=== PATIENT | female | born 1940 | race Caucasian/White ===

== ENCOUNTER → 2016-05-22 | Outpatient (CLI) | payer MEDICARE ==
[~2016-05-22] MED LIST: ALEN70TA47 PO; ASPI-999 PO; CEPH500C PO; CHOL10003 PO; HYDR1TAB86 PO; HYDR25TA4 PO; L.AC1CAP6 PO; LEVO25TA5 PO; LOSA100T7 PO; METO100T2 PO; METO50TA7 PO; NAPR-243 PO; NAPR500T3 PO; NYST1000 PO
--- OUTSIDE RECORDS SUMMARY | 2016-05-22 09:58 | XMS REPORT | Continuity of Care Document ---
Author Author [facility] Organization [facility] Address Unknown Phone Unavailable Care Team Providers Care Spooling Machine Operator Name Role Phone JOSE RAUL VALDERRAMA MD PCP Insurance Providers Payer Name Policy Number Subscriber Name Relationship [employer]ps Medicare [id number] Jeimy Yan 18 Self / Same As Patient [employer] Mc[employer] Supp [id number] Jeimy Yan 18 Self / Same As Patient Advance Directives Directive Response Recorded Date/Time Advance Directives Yes 01/12/16 12:18am Organ Donor N cancer pt 01/12/16 12:18am Resuscitation Status Full Code 01/12/16 12:18am Chief Complaint and Reason for Visit Chief Complaint PNEUMONIA,HYPONATREMIA,DEHYDRATION Reason for Visit Dehydration Hyponatremia Pneumonia Problems Active Problems Medical Problem Onset Date Status Dehydration Unknown Acute Hyponatremia Unknown Acute Pneumonia Unknown Acute Medications Current Home Medications Medication Dose Units Route Directions Days/Qty Instructions Start Date Naproxen 500 Mg 500 Mg Oral Twice A Day as needed for Pain 04/29/11 Hydrochlorothiazide 25 Mg 25 Mg Oral Daily 01/11/16 Aspirin 81 Mg 81 Mg Oral Daily 01/11/16 Metoprolol Tartrate 100 Mg 100 Mg Oral Twice A Day 01/11/16 Levothyroxine Sodium 25 Mcg 25 Mcg Oral Daily 01/11/16 Alendronate Sodium 70 Mg 70 Mg Oral Every Thursday01/14/16 Cholecalciferol (Vitamin D3) 1,000 Unit 1,000 Unit Oral Daily L.acidoph & Paracasei,B.lactis 1 Each 1 Cap Oral Twice A Day Nystatin 100,000 Unit/1 Ml 5 Ml Oral Give Every 6 Hr On Schedule 100 5mL every 6 hours x 5 days 01/17/16 Cephalexin 500 Mg 500 Mg Oral Three Times A Day 3 Days take one pill three times daily x 3 more days 01/17/16 Past Home Medications Medication Directions Ordered Status Metoprolol Succinate 50 Mg Tab.sr.24h, 1 Each Oral Daily 04/29/11 Discontinued Losartan Potassium 100 Mg Tablet, 100 Mg Oral Daily 04/29/11 Discontinued Hydrocodone Bit/Acetaminophen 1 Each Tablet, 1 Each Oral As Needed 04/29/11 Discontinued Cephalexin 500 Mg Capsule, 500 Mg Oral Three Times A Day 01/11/16 Discontinued Naproxen 500 Mg Tablet, 500 Mg Oral Twice A Day as needed for Pain 01/14/16 Discontinued Social History Social History Problem Response Recorded Date/Time Alcohol Use Denies Use 01/12/2016 12:21am Recreational Drug Use No 01/12/2016 12:21am Recent Foreign Travel No 01/12/2016 12:29am Recent Infectious Disease Exposure No 01/12/2016 12:29am Smoking Status Never a Smoker 01/12/2016 12:25am Recent Hopitalizations No 01/12/2016 12:21am Query Response Start Date Stop Date Smoking Status Never a Smoker Hospital Discharge Instructions Patient Instructions Physician Instructions Patient Instructions/FollowUp: follow up with [facility] in 1 week [place] DISCHARGE ORDERS Height (Feet): 5 Height (Inches): 5.00 Weight (Pounds): 211 Weight (Ounces): 0.2 Reason Pt Homebound weakness, pneumonia I Have Seen Pt [id number]: Yes Date of Face to Face: Jan 17, 2016 Discharged To: Home Diagnosis/Conditions HH Order: eval and treat check blood pressure and heart rate *I certify that based on my findings, the following services are medically necessary Home Health Services: Services: Nursing Services, Process Camera Operator-Evaluate & Treat, Physical Therapy-Evaluate & Treat My clinical findings support the need for the above services; see Diagnosis. Dicharge Diet: Regular Diet New, Converted, or Re-newed RX: Transmited to Pharmacy I certify that this patient is under my care and that I, a nurse practitioner or a physician; a clinical education assistant working with me, had a face to face encounter that - meets the physician face to face encounter requirements with this patient as dated. Care Plan Patient Instructions:: follow up with [facility] in 1 week Plan of Care Discharge Date 01/17/16 10:23am Disposition 06 HOME HEALTH SERVICE Instructions/Education Provided Bacterial Pneumonia (DC) Prescriptions See Medication Section Referrals [facility] (Unspecified) - 1 Week Reason(s) for Referral: Pneumonia Care Plan and Goals See Discharge Instructions Section Functional Status Query Response Date Recorded Patient Orientation Person Place Time Situation January 16, 2016 10:46am Patient Orientation Person Place Time Situation Normal For Age January 17, 2016 10:54am Comprehension Ability Understands Concepts January 17, 2016 8:00am Allergies, Adverse Reactions, Alerts No known allergies. Immunizations Name Given Type FLU TRIvalent 5 years - Adult 01/14/16 Administered Vital Signs Acute Vital Signs Vital Response Date/Time Temperature (Fahrenheit) 95.7 degrees F (97.6 - 99.5) 01/17/2016 10:23am Temperature (Calculated Celsius) 35.25793 degrees C (36.4 - 37.5) 01/17/2016 8:00am Temperature Source Tympanic 01/17/2016 10:23am Pulse Rate (adult) 107 bpm (60 - 90) 01/17/2016 10:23am Respiratory Rate 20 bpm (12 - 24) 01/17/2016 10:23am O2 Sat by Pulse Oximetry 94 % (88 - 100) 01/17/2016 10:23am Blood Pressure 115/80 mm Hg 01/17/2016 10:23am Blood Pressure Mean 92 mm Hg 01/17/2016 8:00am Pain Numeric Pain Scale 0-No Pain 01/17/2016 10:23am Height (Feet) 5 feet 01/12/2016 12:30am Height (Inches) 5.00 inches 01/12/2016 12:30am Height (Calculated Centimeters) 165.831261 cm 01/12/2016 12:30am Weight (Pounds) 211 pounds 01/17/2016 6:37am Weight (Ounces) 0.2 oz 01/17/2016 6:37am Weight (Calculated Grams) 90793.661 gm 01/17/2016 6:37am Weight (Calculated Kilograms) 95.352044 kilograms 01/17/2016 6:37am Calculated BMI 34.5 01/12/2016 12:30am Capillary Refill Capillary Refill Less Than 3 Seconds 01/17/2016 8:00am Results Laboratory Results Test Name Result Units Flags Reference Collection Date/Time Result Date/ Time Comments White Blood Count 11.3 10^3/uL H 4.3-11.0 01/17/2016 4:13am 01/17/2016 5: 10am Red Blood Count 3.35 10^6/uL L 4.35-5.85 01/17/2016 4:1301/17/2016 5: 10am Hemoglobin 9.9 G/DL L 11.5-16.0 01/17/2016 4:1301/17/2016 5:10am Hematocrit 31 % L 35-52 01/17/2016 4:1301/17/2016 5:10am Mean Corpuscular Volume 91 FL 80-99 01/17/2016 4:1301/17/2016 5: 10am Mean Corpuscular Hemoglobin 30 PG 25-34 01/17/2016 4:1301/17/2016 5: 10am Mean Corpuscular Hemoglobin Concent 32 G/DL 32-36 01/17/2016 4:13 5:10am Red Cell Distribution Width 15.4 % H 10.0-14.5 01/17/2016 4:132015 5:10am Platelet Count 220 10^3/uL 130-400 01/17/2016 4:1301/17/2016 5:10am Mean Platelet Volume 10.5 FL H 7.4-10.4 01/17/2016 4:1301/17/2016 5: 10am Neutrophils (%) (Auto) 82 % H 42-75 01/17/2016 4:1301/17/2016 5:10am Lymphocytes (%) (Auto) 8 % L 12-44 01/17/2016 4:1301/17/2016 5:10am Monocytes (%) (Auto) 9 % 0-12 01/17/2016 4:13am 01/17/2016 5:10am Eosinophils (%) (Auto) 1 % 0-10 01/17/2016 4:1301/17/2016 5:10am Basophils (%) (Auto) 0 % 0-10 01/17/2016 4:1301/17/2016 5:10am Neutrophils # (Auto) 9.3 X 10^3 H 1.8-7.8 01/17/2016 4:1301/17/2016 5: 10am Lymphocytes # (Auto) 0.9 X 10^3 L 1.0-4.0 01/17/2016 4:1301/17/2016 5: 10am Monocytes # (Auto) 1.0 X 10^3 0.0-1.0 01/17/2016 4:1301/17/2016 5: 10am Eosinophils # (Auto) 0.1 10^3/uL 0.0-0.3 01/17/2016 4:1301/17/2016 5 :10am Basophils # (Auto) 0.0 10^3/uL 0.0-0.1 01/17/2016 4:1301/17/2016 5: 10am Neutrophils % (Manual) 88 % 01/11/2016 7:58pm 01/11/2016 8:55pm Band Neutrophils 4 % 01/11/2016 7:58pm 01/11/2016 8:55pm Lymphocytes % (Manual) 3 % 01/11/2016 7:58pm 01/11/2016 8:55pm Monocytes % (Manual) 5 % 01/11/2016 7:58pm 01/11/2016 8:55pm Eosinophils % (Manual) 0 % 01/11/2016 7:58pm 01/11/2016 8:55pm Basophils % (Manual) 0 % 01/11/2016 7:58pm 01/11/2016 8:55pm Blood Morphology Comment NORMAL 01/11/2016 7:58pm 01/11/2016 8: 55pm Toxic Granulation 1+ 01/11/2016 7:58pm 01/11/2016 8:55pm Urine Color YELLOW 01/16/2016 11:25am 01/16/2016 6:24pm Urine Clarity CLEAR 01/16/2016 11:25am 01/16/2016 6:24pm Urine pH 7 5-9 01/16/2016 11:25am 01/16/2016 6:24pm Urine Specific Supply 1.005 * 1.016-1.022 01/16/2016 11:2015 6:24pm Urine Protein 1+ * NEGATIVE 01/16/2016 11:01/16/2016 6:24pm Urine Glucose (UA) NEGATIVE NEGATIVE 01/16/2016 11:01/16/2016 6: 24pm Urine RBC (Auto) 1+ * NEGATIVE 01/16/2016 11:01/16/2016 6:24pm Urine Ketones NEGATIVE NEGATIVE 01/16/2016 11:01/16/2016 6:24pm Urine Nitrite NEGATIVE NEGATIVE 01/16/2016 11:01/16/2016 6:24pm Urine Bilirubin NEGATIVE NEGATIVE 01/16/2016 11:01/16/2016 6: 24pm Urine Urobilinogen NORMAL MG/DL NORMAL 01/16/2016 11:01/16/2016 6: 24pm Urine Leukocyte Esterase NEGATIVE NEGATIVE 01/16/2016 11:2015 6:24pm Urine RBC 0-2 /HPF 01/16/2016 11:01/16/2016 6:24pm Urine WBC 0-2 /HPF 01/16/2016 11:01/16/2016 6:24pm Urine Bacteria NONE /HPF 01/16/2016 11:01/16/2016 6:24pm Urine Squamous Epithelial Cells 0-2 /HPF 01/16/2016 11:252015 6:24pm Urine Crystals NONE /LPF 01/16/2016 11:2501/16/2016 6:24pm Urine Casts NONE /LPF 01/16/2016 11:2501/16/2016 6:24pm Urine Coarse Granular Casts 10- /LPF * 01/11/2016 11:00pm 01/11/2016 11:24pm Urine Mucus NEGATIVE /LPF 01/16/2016 11:2501/16/2016 6:24pm Urine Culture Indicated NO 01/16/2016 11:2501/16/2016 6:24pm Sodium Level 135 MMOL/L 135-145 01/17/2016 4:13am 01/17/2016 5:30am Potassium Level 5.2 MMOL/L H 3.6-5.0 01/17/2016 4:13am 01/17/2016 5:30am SPECIMEN IS NOT HEMOLYZED Chloride Level 97 MMOL/L L 98-107 01/17/2016 4:13am 01/17/2016 5:30am Carbon Dioxide Level 34 MMOL/L H 21-32 01/17/2016 4:13am 01/17/2016 5: 30am Anion Gap 4 MMOL/L L 5-14 01/17/2016 4:13am 01/17/2016 5:30am Blood Urea Nitrogen 29 MG/DL H 7-18 01/17/2016 4:13am 01/17/2016 5:30am Creatinine 0.79 MG/DL 0.60-1.30 01/17/2016 4:13am 01/17/2016 5:30am BUN/Creatinine Ratio 37 01/17/2016 4:13am 01/17/2016 5:30am Estimat Glomerular Filtration Rate > 60 01/17/2016 4:132015 5:30am GFR INTERPRETIVE DATA UNITS FOR ESTIMATED GFR (eGFR): mL/min/1.73 M2 REFERENCE RANGE FOR ESTIMATED GFR (eGFR) eGFR NORMAL eGFR >60 MODERATELY DECREASED eGFR 30-59 SEVERLY DECREASED eGFR 15-29 KIDNEY FAILURE <15 (OR DIALYSIS) Glucose Level 120 MG/DL H 70-105 01/17/2016 4:13am 01/17/2016 5:30am Calcium Level 8.9 MG/DL 8.5-10.1 01/17/2016 4:1301/17/2016 5:30am Phosphorus Level 3.3 MG/DL 2.3-4.7 01/17/2016 4:1301/17/2016 5:30am Magnesium Level 1.7 MG/DL L 1.8-2.4 01/17/2016 4:13am 01/17/2016 5:30am Total Bilirubin 0.3 MG/DL 0.1-1.0 01/17/2016 4:13am 01/17/2016 5:30am Alkaline Phosphatase 86 U/L 40-136 01/17/2016 4:13am 01/17/2016 5:30am Aspartate Amino Transf (AST/SGOT) 12 U/L 5-34 01/17/2016 4:13am 2015 5:30am Alanine Aminotransferase (ALT/SGPT) 14 U/L 0-55 01/17/2016 4:13am 01/16 5:30am Total Protein 5.2 G/DL L 6.4-8.2 01/17/2016 4:13am 01/17/2016 5:30am Albumin 2.6 G/DL L 3.2-4.5 01/17/2016 4:13am 01/17/2016 5:30am Lactic Acid Level 2.6 MMOL/L CH 0.5-2.0 01/11/2016 7:58pm 01/11/2016 9: 17pm RESULTS CALLED TO [facility] ([place]) AT 2116. RESULTS READ BACK: YES [g LABRB]. Lactic Acid Level 1.2 MMOL/L 0.5-2.0 01/11/2016 11:10pm 01/11/2016 11: 41pm Microbiology Results Procedure Source Result Collection Date/Time Result Date/Time Blood Culture Peripheral, Left Wrist No growth 01/11/2016 7:58pm 2015 6:54pm Blood Culture Peripheral, Rt Ac No growth 01/11/2016 9:18pm 01/12/2016 6: 54pm Urine Culture Urine, Clean Catch NO GROWTH 01/11/2016 11:00pm 01/12/2016 5: 35pm Procedures No known history of procedures. Encounters Encounter Location Arrival/Admit Date Discharge/Depart Date Attending Provider Discharged Inpatient [facility] 01/11/16 9:34pm 10:23am JOSE RAUL VALDERRAMA MD Recent Diagnosis Dehydration Hyponatremia Pneumonia
--- NOTE | 2016-05-23 10:42 | Diagnostic Imaging Report ---
Bilateral screening mammogram. The current study was also evaluated with a Computer Aided Detection (CAD) system. INDICATION: Screening. No current complaints stated on the questionnaire. COMPARISON: 03/06/2016. FINDINGS: The breasts are composed of scattered fibroglandular densities. There are occasional benign-appearing calcifications. Some nodularity is seen in the parenchyma bilaterally similar to prior exams. Also benign-appearing calcifications are noted. Allowing for technique and positional differences, no suspicious change is seen. IMPRESSION: No significant change. ACR BI-RADS Category 2: Benign findings. Result letter will be mailed to the patient. Note: At least 10% of breast cancer is not imaged by mammography. Dictated by: Dictated on workstation # [id number]
== END ==
LOC: RAD 09:53
PROVIDERS: ATTEND Nurse Practitioner Family
DX: Z12.31 Encounter for screening mammogram for malignant neoplasm of breast (principal)
CPT/HCPCS: 77067

== ENCOUNTER → 2017-06-29 | Outpatient (CLI) | payer MEDICARE ==
[~2017-06-29] MED LIST changes: +METO100T12 PO; -METO100T2 PO; +NAPR-915 PO; -NAPR500T3 PO
--- NOTE | 2017-06-29 11:31 | Diagnostic Imaging Report ---
INDICATION: Routine screening. COMPARISON: 05/22/2016 and 05/07/2015. TECHNIQUE: Screening digital mammography was performed bilaterally with a Computer Aided Detection (CAD) system. FINDINGS: Scattered fibroglandular densities are identified bilaterally. Benign calcifications and parenchymal nodularity appear stable. No spiculated mass or malignant appearing microcalcifications are seen. The axillae are unremarkable. IMPRESSION: No mammographic features suspicious for malignancy are identified. ACR BI-RADS Category 2: Benign findings. Result letter will be mailed to the patient. Note: At least 10% of breast cancer is not imaged by mammography. Dictated by: Dictated on workstation # [id number]
== END ==
LOC: RAD 09:42
PROVIDERS: ATTEND Nurse Practitioner Family
DX: Z12.31 Encounter for screening mammogram for malignant neoplasm of breast (principal)
CPT/HCPCS: 77067

== ENCOUNTER → 2017-10-07 | Outpatient (CLI) | payer MEDICARE ==
--- NOTE | 2017-10-07 14:02 | Diagnostic Imaging Report ---
INDICATION: Fall and back pain. TIME OF EXAM: 11:56 a.m. Curvature is normal. There is minimal anterolisthesis of L3 on L4. There is questionable minimal superior endplate compression at the L3 level, age indeterminate. Remaining lumbar vertebrae show normal stature. There is degenerative disc disease at L4-L5 and L5-S1 levels with disc space narrowing and vacuum disc. Calcifications in the right upper quadrant noted consistent with gallstones. IMPRESSION: 1. Cholelithiasis. 2. Questionable superior endplate fracture of L3. MRI lumbar spine would be useful for further evaluation to evaluate acuity. Dictated by: Dictated on workstation # [id number]
== END ==
LOC: RAD 11:18
PROVIDERS: ATTEND Nurse Practitioner Family
DX: K80.20 Calculus of gallbladder without cholecystitis without obstruction (principal); M54.5 Low back pain; W19.XXXA Unspecified fall, initial encounter
CPT/HCPCS: 72100

== ENCOUNTER 2018-11-21 13:00 | Emergency (ER) | payer MEDICARE ==
[~2018-11-21] VITALS: Ht 162.6 cm; Wt 81.6 kg
[~2018-11-21 13:00] MED LIST changes: -ALEN70TA47 PO; +ALEN70TA5 PO
--- NOTE | 2018-11-21 13:46 | ED Neurological Problem ---
General Chief Complaint: General Problems/Pain Stated Complaint: DIZZINESS/NAUSEA/LOW BP Nursing Triage Note: PT TO RM 9 BY WHEELCHAIR WITH COMLAINT OF DIZZINESS, NAUSEA AND LOW BP. STATES THIS STARTED AT 4AM. STATES HER BP WAS "49". DOES NOT REMEMBER THE WHOLE READING. 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 Nursing Sepsis Screen: No Definite Risk Source: patient, family (daughter) Exam Limitations: no limitations History of Present Illness Date Seen by Provider: Nov 21, 2018 Time Seen by Provider: 13:24 Initial Comments The patient presents to ER by private conveyance with chief complaint that for o'clock this morning when she woke up in the bathroom she felt dizzy like the room was spinning around her. She got up went to the bathroom and had a normal bowel movement urination and the dizziness subsided on the toilet. She's had a few episodes of this throughout her lifetime but never had it worked up before. She says she took her own blood pressure and heart rate and she thought it was elevated and her blood pressure was low but she does not remember the numbers. She said years ago she had low blood pressure and it made her drink a lot of water and rechecked normal. She does not take diuretics, blood thinners have a history of stroke heart attack or peripheral arterial disease. She does not smoke cigarettes. She does not have a history of vertigo or take meclizine. She says several of her friends been diagnosed with vertigo and they described similar symptoms. 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 Allergies and Home Medications Allergies Coded Allergies: No Known Drug Allergies (Unverified , 04/30/11) Home Medications Alendronate Sodium 70 Mg Tablet, 70 MG PO Tu, (Reported) Aspirin 81 Mg Tab.chew, 81 MG PO DAILY, (Reported) Cephalexin 500 Mg Capsule, 500 MG PO TID take one pill three times daily x 3 more days Prescribed by: JOSE RAUL VALDERRAMA on 01/17/16 0909 Cholecalciferol (Vitamin D3) 1,000 Unit Tablet, 1,000 UNIT PO DAILY, (Reported) Hydrochlorothiazide 25 Mg Tablet, 25 MG PO DAILY, (Reported) LAudreyacidoph & Bj Landalactis 1 Each Capsule, 1 CAP PO BID, (Reported) Levothyroxine Sodium 25 Mcg Tablet, 25 MCG PO DAILY, (Reported) Metoprolol Tartrate 100 Mg Tablet, 100 MG PO BID, (Reported) Naproxen 500 Mg Tablet, 500 MG PO BID PRN for PAIN, (Reported) Nystatin 100,000 Unit/1 Ml Oral.susp, 5 ML PO Q6HR 5mL every 6 hours x 5 days Prescribed by: JOSE RAUL VALDERRAMA on 01/17/16 0908 Patient Home Medication List Home Medication List Reviewed: Yes Review of Systems Review of Systems Constitutional: No chills, No fever, No malaise Eyes: Denies Blindness, Denies Blurred Vision, Denies Drainage Ears, Nose, Mouth, Throat: denies ear pain, denies ear discharge Respiratory: No cough, No short of breath Cardiovascular: No chest pain, No edema, No Hx of Intervention, No palpitations, No syncope, No vascular heart diseas Gastrointestinal: No abdominal pain, No constipation, No diarrhea Genitourinary: No decreased output, No discharge, No dysuria Musculoskeletal: No back pain, No joint pain Past Spjxnao-Gdndbh-Wcloqo Hx Patient Social History Alcohol Use: Denies Use Recreational Drug Use: No Smoking Status: Never a Smoker 2nd Hand Smoke Exposure: No Recent Foreign Travel: No Contact w/Someone Who Travel: No Recent Infectious Disease Expo: No Recent Hopitalizations: No Physical Abuse: No Sexual Abuse: No Mistreated: No Fear: No Immunizations Up To Date Date of Pneumonia Vaccine: Dec 21, 2014 Seasonal Allergies Seasonal Allergies: Yes Past Medical History Surgeries: Yes (left total knee, bladder tie up, neck cancer lump excision) Hysterectomy, Orthopedic Respiratory: No Cardiac: Yes Hypotension Neurological: No Musculoskeletal: Yes Arthritis Endocrine: Yes Hypothyroidsim Loss of Vision: Denies Hearing Impairment: Denies Cancer: Yes Oral Psychosocial: No Integumentary: No Blood Disorders: No Family Medical History Heart Disease, Diabetes, Hypertension, Other Conditions/Hx Physical Exam Vital Signs Vital Signs - First Documented 11/21/18 13:05 Pulse 93 Resp 16 B/P (MAP) 124/92 (103) Pulse Ox 98 O2 Delivery Room Air Capillary Refill : Less Than 3 Seconds Height, Weight, BMI Height: 5'4.00" Weight: 180lbs. 0.2oz. [id number]; 34.5 BMI Method:Stated General Appearance: WD/WN, no apparent distress HEENT: PERRL/EOMI, normal ENT inspection, TMs normal, pharynx normal Neck: non-tender, limited range of motion, other (contracture secondary to radiation therapy. No acute pain or tenderness to palpation.) Respiratory: chest non-tender, no respiratory distress, no accessory muscle use Cardiovascular: normal peripheral pulses, regular rate, rhythm, no murmur Peripheral Pulses: 2+ Dorsalis Pedis (R), 2+ Left Dors-Pedis (L), 2+ Radial Pulses (R), 2+ Radial Pulses (L) Extremities: normal range of motion, normal capillary refill Neurologic/Psychiatric: stockkeeper II-XII nml as tested, no motor/sensory deficits, alert, normal mood/affect, oriented x 3, other (unable to do head impulse testing. Negative for nystagmus or test of skew.) Crainal Nerves: normal hearing, normal speech, PERRL Coordination/Gait: normal finger to nose, normal gait Motor/Sensory: no motor deficit, no sensory deficit Skin: normal color, warm/dry Progress/Results/Core Measures Results/Orders Lab Results Laboratory Tests Test 11/21/18 13:14 11/21/18 14:13 Range/Units White Blood Count 5.8 4.3-11.0 10^3/uL Red Blood Count 3.48 L 4.35-5.85 10^6/uL Hemoglobin 10.4 L 11.5-16.0 G/DL Hematocrit 33 L 35-52 % Mean Corpuscular Volume 93 80-99 FL Mean Corpuscular Hemoglobin 30 25-34 PG Mean Corpuscular Hemoglobin Concent 32 32-36 G/DL Red Cell Distribution Width 14.0 10.0-14.5 % Platelet Count 244 130-400 10^3/uL Mean Platelet Volume 11.5 H 7.4-10.4 FL Neutrophils (%) (Auto) 79 H 42-75 % Lymphocytes (%) (Auto) 15 12-44 % Monocytes (%) (Auto) 6 0-12 % Eosinophils (%) (Auto) 0 0-10 % Basophils (%) (Auto) 0 0-10 % Neutrophils # (Auto) 4.6 1.8-7.8 X 10^3 Lymphocytes # (Auto) 0.9 L 1.0-4.0 X 10^3 Monocytes # (Auto) 0.3 0.0-1.0 X 10^3 Eosinophils # (Auto) 0.0 0.0-0.3 10^3/uL Basophils # (Auto) 0.0 0.0-0.1 10^3/uL Sodium Level 137 135-145 MMOL/L Potassium Level 4.6 3.6-5.0 MMOL/L Chloride Level 103 98-107 MMOL/L Carbon Dioxide Level 24 21-32 MMOL/L Anion Gap 10 5-14 MMOL/L Blood Urea Nitrogen 73 H 7-18 MG/DL Creatinine 0.83 0.60-1.30 MG/DL Estimat Glomerular Filtration Rate > 60 BUN/Creatinine Ratio 88 Glucose Level 116 H 70-105 MG/DL Calcium Level 8.7 8.5-10.1 MG/DL Corrected Calcium 8.9 8.5-10.1 MG/DL Total Bilirubin 0.8 0.1-1.0 MG/DL Aspartate Amino Transf (AST/SGOT) 15 5-34 U/L Alanine Aminotransferase (ALT/SGPT) 11 0-55 U/L Alkaline Phosphatase 52 40-136 U/L C-Reactive Protein High Sensitivity 0.08 0.00-0.50 MG/DL Total Protein 6.4 6.4-8.2 GM/DL Albumin 3.7 3.2-4.5 GM/DL Urine Color YELLOW Urine Clarity CLEAR Urine pH 6 5-9 Urine Specific [place] 1.015 L 1.016-1.022 Urine Protein NEGATIVE NEGATIVE Urine Glucose (UA) NEGATIVE NEGATIVE Urine Ketones NEGATIVE NEGATIVE Urine Nitrite NEGATIVE NEGATIVE Urine Bilirubin NEGATIVE NEGATIVE Urine Urobilinogen NORMAL NORMAL MG/DL Urine Leukocyte Esterase NEGATIVE NEGATIVE Urine RBC (Auto) 1+ H NEGATIVE Urine RBC 0-2 /HPF Urine WBC NONE /HPF Urine Squamous Epithelial Cells 2-5 /HPF Urine Crystals NONE /LPF Urine Bacteria NEGATIVE /HPF Urine Casts NONE /LPF Urine Mucus NEGATIVE /LPF Urine Culture Indicated NO My Orders Orders - GENEVIEVE HOPKINS Orthostatic Vital Signs (Adult (11/21/18 13:42) Cbc With Automated Diff (11/21/18 13:42) Comprehensive Metabolic Panel (11/21/18 13:42) Hs C Reactive Protein (11/21/18 13:42) Ekg Tracing (11/21/18 13:42) Continuous Ekg Monitoring (11/21/18 13:42) Ua Culture If Indicated (11/21/18 13:42) Ed Iv/Invasive Line Start (11/21/18 13:52) Ns Iv 500 Ml (Sodium Chloride 0.9%) (11/21/18 13:52) Ed Iv/Invasive Line Start (11/21/18 15:40) Ns Iv 500 Ml (Sodium Chloride 0.9%) (11/21/18 15:40) Medications Given in ED Current Medications Medications Dose Ordered Sig/Hodan Route Start Time Stop Time Status Last Admin Dose Admin Sodium Chloride 500 ml @ 0 mls/hr Q0M ONCE IV 11/21/18 13:52 11/21/18 13:53 DC 11/21/18 13:59 500 MLS/HR Vital Signs/I&O 11/21/18 11/21/18 13:05 13:50 Pulse 93 86 91 82 Resp 16 B/P (MAP) 124/92 (103) 113/67 (82) 98/62 (74) 99/63 (75) Pulse Ox 98 O2 Delivery Room Air Blood Pressure Mean: 103 Progress Progress Note : Time: 14:42 Progress Note Negative MPI [address] Lizama with EF of 61%. Negative for findings of central vertigo. She has not required anything for nausea. Attempted to do Swan-Hallpike maneuvers but because of the limitations of the range of motion of her neck secondary to previous radiation therapy we were not able to perform adequate maneuvers nor elicit her vertigo. We will obtain labs, EKG, orthostatics. Orthostatics were not quite positive that she had 14 mmHg drop systolic so we'll give her half a liter fluids and watch her. She has not been hypotensive nor tachycardic since she's been here. She's already known to Dr. Miller may be reasonable to have her follow-up with him to discuss management of vertigo. We can provide her with some meclizine. We will attempt to teach Fawn's maneuvers however she may need tilt table testing. Initial ECG Impression Date: Nov 21, 2018 Initial ECG Impression Time: 14:02 Initial ECG Rate: 83 Initial ECG Rhythm: Normal Sinus Initial ECG Intervals: Normal Initial ECG Impression: Normal Initial ECG Comparisson: Unchanged Comment Normal sinus rhythm without acute ST elevation or depression. Departure Impression Primary Impression: Vertigo Additional Impression: Orthostatic dizziness Disposition: 01 HOME, SELF-CARE Condition: Improved Departure-Patient Inst. Decision time for Depature: 15:43 Referrals: JOSE RAUL VALDERRAMA MD (PCP/Family) Primary Care Physician Patient Instructions: Vertigo (a Type of Dizziness) (DC) Add. Discharge Instructions: Plan to follow up in the next couple weeks with your primary care doctor discussed management of your symptoms. Meclizine 1 tablet every 6 hours as needed for dizziness. All discharge instructions reviewed with patient and/or family. Voiced understanding. Scripts Meclizine HCl (Meclizine HCl) 25 Mg Tablet 25 MG PO Q6H PRN for DIZZINESS, #20 TAB 0 Refills Prov: GENEVIEVE HOPKINS 11/21/18 GENEVIEVE HOPKINS Nov 21, 2018 13:46
[2018-11-21 13:50] VITALS: BP_SYST 113; BP_SYST 98; BP_SYST 99; BP_DIAS 62; BP_DIAS 63; BP_DIAS 67
[2018-11-21] MEDS ORDERED: NS IV 500 ML 500 ML IV ONE ×2 (13:52→15:40)
[2018-11-21 13:53] LABS: BASOPHILS % (AUTO) 0 % (0-10); EOSINOPHILS % (AUTO) 0 % (0-10); HEMATOCRIT 33 % (35-52); HEMOGLOBIN 10.4 G/DL (11.5-16.0); LYMPHOCYTES # (AUTO) 0.9 X 10^3 (1.0-4.0); LYMPHOCYTES % (AUTO) 15 % (12-44); MEAN CORPUSCULAR HEMOGLOBIN 30 PG (25-34); MEAN CORPUSCULAR HGB CONC 32 G/DL (32-36); MEAN CORPUSCULAR VOLUME 93 FL (80-99); MEAN PLATELET VOLUME 11.5 FL (7.4-10.4); MONOCYTES # (AUTO) 0.3 X 10^3 (0.0-1.0); MONOCYTES % (AUTO) 6 % (0-12); NEUTROPHILS # (AUTO) 4.6 X 10^3 (1.8-7.8); NEUTROPHILS % (AUTO) 79 % (42-75); PLATELET COUNT 244 10^3/uL (130-400); WHITE BLOOD COUNT 5.8 10^3/uL (4.3-11.0)
[2018-11-21 14:28] LABS: BILIRUBIN,URINE NEGATIVE (NEGATIVE); CLARITY,URINE CLEAR; COLOR,URINE YELLOW; GLUCOSE, URINE (UA) NEGATIVE (NEGATIVE); KETONES,URINE NEGATIVE (NEGATIVE); LEUKOCYTE ESTERASE ,URINE NEGATIVE (NEGATIVE); NITRITE,URINE NEGATIVE (NEGATIVE); PH,URINE 6 (5-9); PROTEIN,URINE NEGATIVE (NEGATIVE); UROBILINOGEN,URINE NORMAL (NORMAL)
[2018-11-21 14:34] LABS: BACTERIA,URINE NEGATIVE /HPF; RBC,URINE 0-2 /HPF
[2018-11-21 15:18] LABS: ALANINE AMINOTRANSFERASE 11 U/L (0-55); ALBUMIN 3.7 GM/DL (3.2-4.5); ALKALINE PHOSPHATASE 52 U/L (40-136); BILIRUBIN,TOTAL 0.8 MG/DL (0.1-1.0); BUN/CREATININE RATIO 88; CALCIUM 8.7 MG/DL (8.5-10.1); CARBON DIOXIDE 24 MMOL/L (21-32); CHLORIDE 103 MMOL/L (98-107); CREATININE SERUM 0.83 MG/DL (0.60-1.30); GFR ESTIMATED > 60; GLUCOSE 116 MG/DL (70-105); POTASSIUM 4.6 MMOL/L (3.6-5.0); SODIUM 137 MMOL/L (135-145); TOTAL PROTEIN 6.4 GM/DL (6.4-8.2)
[2018-11-21] MEDS ORDERED: MECL-106 PO (15:45)
[2018-11-21 16:38] VITALS: BP 158/91
== END 2018-11-21 16:38 | disposition home or self-care (01) ==
LOC: EDUNIT# 13:00 → ER 13:02
DX: R42 Dizziness and giddiness (principal); I25.2 Old myocardial infarction; E03.9 Hypothyroidism, unspecified; Z86.73 Personal history of transient ischemic attack (TIA), and cerebral infarction without residual deficits; Z79.82 Long term (current) use of aspirin; Z90.710 Acquired absence of both cervix and uterus; Z85.819 Personal history of malignant neoplasm of unspecified site of lip, oral cavity, and pharynx; Z82.49 Family history of ischemic heart disease and other diseases of the circulatory system
CPT/HCPCS: 36415; 80053; 81000; 85025; 86141

== ENCOUNTER → 2019-03-01 | Outpatient (CLI) | payer MEDICARE ==
[~2019-03-01] MED LIST changes: +MECL-106 PO
--- NOTE | 2019-03-01 16:04 | Diagnostic Imaging Report ---
INDICATION: Postmenopausal screening for osteoporosis. COMPARISON: None FINDINGS: AP Spine L1-L4: [BMD (g/cm2): 1.3132] [T-Score: -0.6] [Z-Score: 0.9] [BMD Previous: na] [BMD % Change: na] LT Hip Neck: [BMD (g/cm2): 0.781] [T-Score: -1.8] [Z-Score: 0.0] LT Hip Total: [BMD (g/cm2):0.773] [T-Score:-1.9] [Z-Score: -0.1] [BMD Previous: na] [BMD % Change: na] RT Hip Neck: [BMD (g/cm2):0.758] [T-Score:-2.0] [Z-Score:-0.1] RT Hip Total: [BMD (g/cm2):0.768] [T-score:-1.9] [Z-Score:-0.2] [BMD Previous:na] [BMD % Change:na] *Indicates significant change from prior examination based on 95% confidence level. World Health Organization criteria for BMD interpretation classify patients as Normal (T-score at or above -1.0), Osteopenic (T-score between -1.0 and -2.5) or Osteoporotic (T-score at or below -2.5). LIMITATIONS AND MODIFICATION: None. FRACTURE RISK (FRAX SCORE): The ten year probability of (%): Major Osteoporotic Fracture: [22.6] Hip Fracture: [6.1] IMPRESSION: 1. Osteopenia (Low bone mass). 2. Baseline examination. 3. See below National Osteoporosis Foundation guidelines on when to potentially initiate pharmacologic therapy. Based on the National Osteoporosis Foundation Guidelines, pharmacologic treatment should be initiated in any of the following, unless clinical conditions suggest otherwise: * Any patient with prior fragility fracture of the hip or vertebrae. A spine fracture indicates 5X risk for subsequent spine fracture and 2X risk for subsequent hip fracture. * Osteoporosis (T-score <-2.5). * Postmenopausal women and men age 50 and older with low bone mass/osteopenia (T-score between -1.0 and -2.5) by DXA and 10-year major osteoporotic fracture greater than 20% or a 10-year probability of hip fracture greater than 3%. These fracture risks are supplied above in the FRAX score, if applicable. * Clinician judgement and/or patient preferences may indicate treatment for people with 10-year fracture probabilities above or below these levels. Dictated by: Dictated on workstation # [id number]
== END ==
LOC: RAD 10:59
PROVIDERS: ATTEND Family Medicine
DX: Z13.820 Encounter for screening for osteoporosis (principal); M81.0 Age-related osteoporosis without current pathological fracture; M85.80 Other specified disorders of bone density and structure, unspecified site; Z78.0 Asymptomatic menopausal state
CPT/HCPCS: 77080

== ENCOUNTER 2019-09-16 13:16 | Outpatient (RCR) | payer MEDICARE ==
[2019-09-09 13:05] VITALS: BP 158/90
[2019-09-09] MEDS: FERRIC CARBOXYMALTOSE INJ 750 MG in NS (IVPB) 250 ML IV SCH (13:48)
[2019-09-16 13:15] VITALS: BP 156/86
[~2019-09-16 13:16] MED LIST changes: -MECL-106 PO; +MECL-149 PO
[2019-09-16] MEDS: FERRIC CARBOXYMALTOSE INJ 750 MG in NS (IVPB) 250 ML IV SCH (13:40)
== END 2019-09-16 14:07 | disposition still patient (30) ==
LOC: SDC 13:16
PROVIDERS: ATTEND Nurse Practitioner Family
DX: D50.9 Iron deficiency anemia, unspecified (principal)
CPT/HCPCS: 96365

== ENCOUNTER → 2020-05-18 | Outpatient (CLI) | payer MEDICARE ==
[~2020-05-18] MED LIST changes: -ALEN70TA5 PO; +ALEN70TA80 PO
== END ==
LOC: CARD 13:00
PROVIDERS: ATTEND Internal Medicine Cardiovascular Disease
DX: I11.9 Hypertensive heart disease without heart failure (principal); I08.0 Rheumatic disorders of both mitral and aortic valves
CPT/HCPCS: 93306

== ENCOUNTER 2020-10-03 13:35 | Outpatient (RCR) | payer MEDICARE | END 2020-10-04 11:22 | disposition home or self-care (01) | PROVIDERS: ATTEND Nurse Practitioner Family | DX: M62.81 Muscle weakness (generalized) (principal); M40.209 Unspecified kyphosis, site unspecified; I10 Essential (primary) hypertension; R26.89 Other abnormalities of gait and mobility; R20.0 Anesthesia of skin; R29.6 Repeated falls ==

== ENCOUNTER 2022-06-16 13:34 | Emergency (ER) | payer MEDICARE ==
[~2022-06-16] VITALS: Ht 165.1 cm; Wt 73.4 kg
--- NOTE | 2022-06-16 13:51 | ED Fall/Injury ---
General Chief Complaint: Trauma-Non Activation Stated Complaint: FALL Source: patient, EMS Exam Limitations: no limitations History of Present Illness Date Seen by Provider: Jun 16, 2022 Time Seen by Provider: 13:38 Initial Comments 81-year-old female arrives via EMS after a fall at home. She states she went to the fridge and left her walker to get a dish out of the fridge. She was turning around the back of her walker got her feet caught on each other. This caused her to fall onto her right buttocks. She has pain in her right mid low back. No hip pain. Pain is mostly on the right lateral lumbar region but she does have some midline tenderness as well. No lower extremity weakness numbness or tingling. She has been able to ambulate but states it hurts her to do so. No loss of bowel bladder control or saddle anesthesia. No upper extremity injury. He did not hit her head and lose consciousness. She is not on any blood thinning medication. She denies any neck pain. All other systems reviewed and negative except documented per HPI. Voice recognition software was used to help create this chart Allergies and Home Medications Allergies Coded Allergies: No Known Drug Allergies (Unverified , 06/16/22) Patient Home Medication List Home Medication List Reviewed: Yes Alendronate Sodium (Alendronate Sodium) 70 Mg Tablet, 70 MG PO , (Reported) Entered as Reported by: NEFTALY CAMARENA on 01/14/161100 Aspirin (Aspirin) 81 Mg Tab.chew, 81 MG PO DAILY, (Reported) Entered as Reported by: JOHANN WRIGHT on 01/11/162023 Cephalexin (Cephalexin) 500 Mg Capsule, 500 MG PO TID Prescribed by: JOSE RAUL VALDERRAMA on 01/17/16 0909 Cholecalciferol (Vitamin D3) (Vitamin D3) 1,000 Unit Tablet, 1,000 UNIT PO DAILY, (Reported) Entered as Reported by: NEFTALY CAMARENA on 01/14/16 110 Hydrochlorothiazide (Hydrochlorothiazide) 25 Mg Tablet, 25 MG PO DAILY, (Repo rted) Entered as Reported by: JOHANN WRIGHT on 01/11/162023 L.acidoph & Paracasei,B.lactis (Probiotic) 1 Each Capsule, 1 CAP PO BID, (Reported) Entered as Reported by: NEFTALY CAMARENA on 01/14/16 1101 Levothyroxine Sodium (Levothyroxine Sodium) 25 Mcg Tablet, 25 MCG PO DAILY, (Reported) Entered as Reported by: JOHANN WRIGHT on 01/11/162023 Meclizine HCl (Meclizine HCl) 25 Mg Tablet, 25 MG PO Q6H PRN for DIZZINESS Prescribed by: GENEVIEVE HOPKINS on 11/21/18 1545 Metoprolol Tartrate (Metoprolol Tartrate) 100 Mg Tablet, 100 MG PO BID, (Reported) Entered as Reported by: JOHANN WRIGHT on 01/11/162023 Naproxen (Naprosyn) 500 Mg Tablet, 500 MG PO BID PRN for PAIN, (Reported) Entered as Reported by: JOSS HUI on 04/29/11 1203 Nystatin (Nystatin) 100,000 Unit/1 Ml Oral.susp, 5 ML PO Q6HR Prescribed by: JOSE RAUL VALDERRAMA on 01/17/16 0908 Review of Systems Review of Systems Constitutional: see HPI Past Wndwszl-Reoyvq-Ksovfn Hx Patient Social History Tobacco Use?: No Use of E-Cig and/or Vaping dev: No Substance use?: No Alcohol Use?: No Immunizations Up To Date Influenza Vaccine Up-to-Date: Yes; Up-to-Date Seasonal Allergies Seasonal Allergies: Yes Past Medical History Surgery/Hospitalization HX: OSTIOPEROSIS, HTN, IBS Surgeries: Yes (left total knee, bladder tie up, neck cancer lump excision) Hysterectomy, Orthopedic Respiratory: No Cardiac: Yes Hypotension Neurological: No Musculoskeletal: Yes Arthritis Endocrine: Yes Hypothyroidsim Loss of Vision: Denies Hearing Impairment: Denies Cancer: Yes Oral Psychosocial: No Integumentary: No Blood Disorders: No Family Medical History Reviewed Nursing Family Hx Heart Disease, Diabetes, Hypertension, Other Conditions/Hx Physical Exam Vital Signs Vital Signs - First Documented 06/16/22 13:34 Temp 35.3 Pulse 93 Resp 20 B/P (MAP) 176/106 (129) O2 Delivery Room Air Capillary Refill : Height, Weight, BMI Height: 5'4.00" Weight: 180lbs. 0.2oz. [id number]; 34.5 BMI Method:Stated General Appearance: WD/WN, no apparent distress HEENT: normal ENT inspection, pharynx normal Neck: non-tender, supple Cardiovascular: regular rate, rhythm, no murmur Respiratory: chest non-tender, lungs clear, normal breath sounds, no respiratory distress, no accessory muscle use Gastrointestinal: normal bowel sounds, non tender, soft, no organomegaly Back: other (Tenderness palpation right lateral lumbar region, mild tenderness in the midline near L4. No step-offs or deformity. No bruising.) Extremities: normal range of motion, non-tender, normal inspection, no pedal edema, no calf tenderness, normal capillary refill, other (No hip pain throughout internal and external rotation, flexion and extension.) Neurologic/Psychiatric: alert, normal mood/affect, oriented x 3 Skin: normal color, warm/dry Progress/Results/Core Measures Results/Orders My Orders Orders - JESSA GONZALEZ DO Ct Lumbar Spine Wo (06/16/22 13:47) Hydrocodone/Apap 5/325 Tablet (Lortab 5 (06/16/22 14:30) Medications Given in ED Current Medications Medications Dose Ordered Sig/Hodan Route Start Time Stop Time Status Last Admin Dose Admin Acetaminophen/ Hydrocodone Bitart 1 ea ONCE ONCE PO 06/16/22 14:30 06/16/22 14:31 DC 06/16/22 14:32 1 EA Vital Signs/I&O 06/16/22 13:34 Temp 35.3 Pulse 93 Resp 20 B/P (MAP) 176/106 (129) O2 Delivery Room Air Departure Communication (Admissions) Patient is hemodynamically stable. 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 Radiologist thinks it may be an acute mild compression fracture of the superior endplate of L1 however it is indeterminate. Give patient pain medication and she has been up, ambulatory. If this were to be a compression fracture it is less than 20% body height and would not be operative management so we will focus on pain control for now. Is unclear if this is actually a fracture or just severe arthritis however recommend the patient return to care should her symptoms worsen at all if she develops weakness numbness or tingling in the lower extremities, loss of bowel or bladder control. She will follow-up with her primary doctor should her pain persist beyond the next couple weeks for possible MRI. She states understanding. Is that she is comfortable for discharge home with pain medication and close follow-up. Impression Primary Impression: Low back pain Qualified Codes: M54.50 - Low back pain, unspecified Disposition: 01 HOME, SELF-CARE Condition: Stable Departure-Patient Inst. Referrals: JOSE RAUL VALDERRAMA MD (PCP) Primary Care Physician Add. Discharge Instructions: Your CT scan has a mild anomaly at the L1 vertebral body. This may be a fracture but is hard to tell as there is significant arthritis in this area as well. If this was a fracture, it would be mild and would not likely require operative management given that your pain is controlled. Should you have pain past the next couple weeks I recommend you follow-up with your primary doctor for possible MRI however if your pain subsides or is very mild then this is likely not necessary. Take the pain medication as prescribed as needed. Do not drive or make poor decisions while taking it as it may make you drowsy. You may also want to take stool softeners while taking it as it can cause constipation. Return to the emergency department immediately for development weakness in your legs, numbness or tingling or if you lose control of your bowel or bladder. All discharge instructions reviewed with patient and/or family. Voiced understanding. Scripts Hydrocodone/Acetaminophen (Hydrocodone-Acetamin 5-325 mg) 5 Mg-325 Mg Tablet 1 TAB PO Q4H PRN for PAIN-MODERATE (5-7) for 3 Days, #12 TAB Prov: JESSA GONZALEZ DO 06/16/22 JESSA GONZALEZ DO Jun 16, 2022 13:51
[2022-06-16] MEDS ORDERED: HYDROcodone/APAP 5 MG/325 MG (LORTAB) TAB PO ONE (14:30)
--- NOTE | 2022-06-16 14:57 | Diagnostic Imaging Report ---
PROCEDURE: CT lumbar spine without contrast. TECHNIQUE: Multiple contiguous axial images were obtained through the lumbar spine without the use of intravenous contrast. Sagittal and coronal reformations were then performed. Auto Exposure Controls were utilized during the CT exam to meet ALARA standards for radiation dose reduction. INDICATION: Back pain after fall. COMPARISON: None available. FINDINGS: Diffuse osseous demineralization is likely due to osteoporosis. Mild height loss in the inferior endplate L1 with the focus of cortical disruption could represent a nondisplaced fracture. There is less than 20% height loss. No traumatic subluxation. Multilevel degenerative disc disease is present. There are no sites of high-grade spinal canal stenosis. No sacral insufficiency fracture. [id number] portions of retroperitoneum are unremarkable. IMPRESSION: 1. Potential acute nondisplaced fracture involving the L1 vertebral body. There are no retropulsed ossific fragments. Patient's osteoporosis mildly limits assessment. If it will alter patient management, then MRI could be performed to assess for bone marrow edema. Dictated by: Dictated on workstation # [id number]
[2022-06-16] MEDS ORDERED: ACHD5005 PO (15:50)
[2022-06-16 16:10] VITALS: BP 150/107
== END 2022-06-16 16:10 | disposition home or self-care (01) ==
LOC: EDUNIT# 13:38 → ER 13:40
DX: M47.816 Spondylosis without myelopathy or radiculopathy, lumbar region (principal); W18.30XA Fall on same level, unspecified, initial encounter; Y92.009 Unspecified place in unspecified non-institutional (private) residence as the place of occurrence of the external cause
CPT/HCPCS: 72131

== ENCOUNTER 2022-06-21 13:41 | Inpatient (IN) | payer MEDICARE ==
[~2022-06-21] VITALS: Ht 165.1 cm; Wt 75.0 kg
[~2022-06-21 13:41] MED LIST changes: +ACHD5005 PO
[2022-06-21 14:29] LABS: BASOPHILS % (AUTO) 0 % (0-10); EOSINOPHILS % (AUTO) 0 % (0-10); HEMATOCRIT 47 % (35-52); HEMOGLOBIN 16.1 g/dL (11.5-16.0); LYMPHOCYTES # (AUTO) 0.8 X 10^3 (1.0-4.0); LYMPHOCYTES % (AUTO) 10 % (12-44); MEAN CORPUSCULAR HEMOGLOBIN 31 pg (25-34); MEAN CORPUSCULAR HGB CONC 34 g/dL (32-36); MEAN CORPUSCULAR VOLUME 90 fL (80-99); MEAN PLATELET VOLUME 10.3 fL (9.0-12.2); MONOCYTES # (AUTO) 0.7 X 10^3 (0.0-1.0); MONOCYTES % (AUTO) 8 % (0-12); NEUTROPHILS # (AUTO) 6.6 X 10^3 (1.8-7.8); NEUTROPHILS % (AUTO) 81 % (42-75); PLATELET COUNT 222 10^3/uL (130-400); WHITE BLOOD COUNT 8.1 10^3/uL (4.3-11.0)
[2022-06-21] MEDS ORDERED: ONDANSETRON 4 MG/2 ML (SDV) Z0FRAN IVP ONE (14:30)
[2022-06-21 14:32] LABS: ALBUMIN 4.3 GM/DL (3.2-4.5); POTASSIUM 4.7 MMOL/L (3.6-5.0)
[2022-06-21 14:33] LABS: CALCIUM 9.9 MG/DL (8.5-10.1)
[2022-06-21 14:35] LABS: TOTAL PROTEIN 7.4 GM/DL (6.4-8.2)
[2022-06-21 14:36] LABS: BILIRUBIN,TOTAL 1.3 MG/DL (0.1-1.0)
[2022-06-21 14:38] LABS: CREATININE SERUM 0.8 MG/DL (0.60-1.30)
[2022-06-21 14:41] LABS: MAGNESIUM 2.1 MG/DL (1.6-2.4)
--- NOTE | 2022-06-21 14:54 | Diagnostic Imaging Report ---
INDICATION: Cough. TECHNIQUE: Single view chest 2:31 PM. CORRELATION STUDY: 01/16/2016 FINDINGS: Heart size enlarged. Vasculature overall within normal limits. Lung mon hyperinflated but overall clear. No significant infiltrate. IMPRESSION: 1. Hyperintense lung mon. No infiltrate. Borderline cardiac enlargement without failure. Dictated by: Dictated on workstation # [id number]
--- NOTE | 2022-06-21 14:57 | ED General ---
General Chief Complaint: General Problems/Pain Stated Complaint: WEAKNESS Nursing Triage Note: ARRIVES TODAY TO ROOM 7 VIA EMS WITH C/O CONTINUED, PAIN, NAUSEA, AND ACTIVITY INTOLERANCE IN SPITE OF TAKING HER PAIN MEDICATION AT HOME. Source of Information: Patient Exam Limitations: No Limitations History of Present Illness Date Seen by Provider: Jun 21, 2022 Time Seen by Provider: 13:42 Initial Comments This 81-year-old woman presents to the emergency room via EMS with complaints of low back pain, weakness, decreased oral intake, congestion, shortness of breath, nausea, and decreased general activity. She had a fall earlier in the week and was seen in this emergency room on Thursday. There was a suspected vertebral body fracture of L1. She has just not been able to recover from this fall and is not functioning well at home. She is afebrile. She is not vomiting with her nausea. Pain has not been controlled on the hydrocodone she was prescribed. Dr. Ritter is her primary care provider. Allergies and Home Medications Allergies Coded Allergies: No Known Drug Allergies (Unverified , 06/16/22) Patient Home Medication List Home Medication List Reviewed: Yes Alendronate Sodium (Alendronate Sodium) 70 Mg Tablet, 70 MG PO WEEK, (Reported) Entered as Reported by: MEENAKSHI BHATT on 06/21/221739 Last Action: New Order Amlodipine Besylate (Amlodipine Besylate) 2.5 Mg Tablet, 1 EACH PO HS, (Reported) Entered as Reported by: MEENAKSHI BHATT on 06/21/221739 Last Action: New Order Aspirin (Aspirin) 81 Mg Tab.chew, 81 MG PO DAILY, (Reported) Entered as Reported by: JOHANN WRIGHT on 01/11/162023 Last Action: Reviewed Cholecalciferol (Vitamin D3) (Vitamin D3) 1,000 Unit Tablet, 1,000 UNIT PO DAILY, (Reported) Entered as Reported by: NEFTALY CAMARENA on 01/14/16 1101 Last Action: Reviewed Hydrocodone/Acetaminophen (Hydrocodone-Acetamin 5-325 mg) 5 Mg-325 Mg Tablet, 1 TAB PO Q4H PRN for PAIN-MODERATE (5-7) Prescribed by: JESSA GONZALEZ MD on 06/16/22 1550 Last Action: Reviewed Levothyroxine Sodium (Synthroid) 25 Mcg Tablet, 0.5 EACH PO DAILY, (Reported) Entered as Reported by: MEENAKSHI BHATT on 06/21/221739 Last Action: New Order Losartan Potassium (Losartan Potassium) 25 Mg Tablet, 1 EA PO DAILY, (Reported) Entered as Reported by: MEENAKSHI BHATT on 06/21/221739 Last Action: New Order Metoprolol Tartrate (Metoprolol Tartrate) 100 Mg Tablet, 100 MG PO BID, (Reported) Entered as Reported by: JOHANN WRIGHT on 01/11/162023 Last Action: Reviewed Naproxen (Naprosyn) 500 Mg Tablet, 500 MG PO BID PRN for PAIN, (Reported) Entered as Reported by: JOSS HUI on 04/29/11 1203 Last Action: Reviewed Discontinued Medications Alendronate Sodium (Alendronate Sodium) 70 Mg Tablet, 70 MG PO Tu, (Reported) Discontinued Reason: New Order Entered as Reported by: NEFTALY CAMARENA on 01/14/161100 Last Action: Discontinued Cephalexin (Cephalexin) 500 Mg Capsule, 500 MG PO TID Discontinued Reason: No Longer Taking Prescribed by: JOSE RAUL RITTER on 01/17/16 0909 Last Action: Discontinued Hydrochlorothiazide (Hydrochlorothiazide) 25 Mg Tablet, 25 MG PO DAILY, (Reported) Discontinued Reason: No Longer Taking Entered as Reported by: JOHANN WRIGHT on 01/11/162023 Last Action: Discontinued L.acidoph & Paracasei,B.lactis (Probiotic) 1 Each Capsule, 1 CAP PO BID, (Reported) Discontinued Reason: No Longer Taking Entered as Reported by: NEFTALY CAMARENA on 01/14/161100 Last Action: Discontinued Levothyroxine Sodium (Levothyroxine Sodium) 25 Mcg Tablet, 25 MCG PO DAILY, (Reported) Discontinued Reason: New Order Entered as Reported by: JOHANN WRIGHT on 01/11/162023 Last Action: Discontinued Meclizine HCl (Meclizine HCl) 25 Mg Tablet, 25 MG PO Q6H PRN for DIZZINESS Discontinued Reason: No Longer Taking Prescribed by: GENEVIEVE HOPKINS on 11/21/18 1545 Last Action: Discontinued Nystatin (Nystatin) 100,000 Unit/1 Ml Oral.susp, 5 ML PO Q6HR Discontinued Reason: No Longer Taking Prescribed by: JOSE RAUL RITTER on 01/17/16 0908 Last Action: Discontinued Review of Systems Review of Systems Constitutional: see HPI, weakness EENTM: no symptoms reported Respiratory: see HPI Cardiovascular: no symptoms reported Gastrointestinal: see HPI Genitourinary: no symptoms reported : No Musculoskeletal: see HPI Skin: no symptoms reported Psychiatric/Neurological: No Symptoms Reported Hematologic/Lymphatic: No Symptoms Reported Immunological/Allergic: no symptoms reported Past Zmwbdgn-Xtbyva-Klsyxk Hx Patient Social History Tobacco Use?: No Use of E-Cig and/or Vaping dev: No Substance use?: No Alcohol Use?: No Pt feels they are or have been: No Immunizations Up To Date Influenza Vaccine Up-to-Date: Yes; Up-to-Date First/Initial COVID19 Vaccinat: "5 SHOTS" Seasonal Allergies Seasonal Allergies: Yes Past Medical History Surgery/Hospitalization HX: OSTIOPEROSIS, HTN, IBS Surgeries: Yes (left total knee, bladder tie up, neck cancer lump excision) Hysterectomy, Orthopedic Respiratory: No Cardiac: Yes Hypotension Neurological: No Genitourinary: No Gastrointestinal: No Musculoskeletal: Yes Arthritis Endocrine: Yes Hypothyroidsim Loss of Vision: Denies Hearing Impairment: Denies Cancer: Yes Oral Psychosocial: No Integumentary: No Blood Disorders: No Family Medical History Heart Disease, Diabetes, Hypertension, Other Conditions/Hx Physical Exam Vital Signs Vital Signs - First Documented 06/21/22 13:41 Temp 35.4 Pulse 85 Resp 16 B/P (MAP) 146/100 (115) Pulse Ox 100 O2 Delivery Room Air Capillary Refill : Less Than 3 Seconds Height, Weight, BMI Height: 5'4.00" Weight: 180lbs. 0.2oz. [id number]; 26.00 BMI Method:Stated General Appearance: No Apparent Distress, WD/WN HEENT: PERRL/EOMI, Normal ENT Inspection Neck: Normal Inspection Respiratory: Lungs Clear, Normal Breath Sounds, No Accessory Muscle Use Cardiovascular: Regular Rate, Rhythm, No Edema, No Murmur Gastrointestinal: Normal Bowel Sounds, Non Tender, Soft, Distended Extremity: Normal Inspection, No Pedal Edema Neurologic/Psychiatric: Alert, Oriented x3, No Motor/Sensory Deficits, Normal Mood/Affect Skin: Normal Color, Warm/Dry Progress/Results/Core Measures Suspected Sepsis SIRS Temperature: Pulse: 85 Respiratory Rate: 16 Laboratory Tests 06/21/22 13:45: White Blood Count 8.1 Blood Pressure 146 /100 Mean: 115 Laboratory Tests 06/21/22 13:45: Creatinine 0.80, Platelet Count 222, Total Bilirubin 1.3H Results/Orders Lab Results Laboratory Tests Test 06/21/22 13:45 06/21/22 14:31 06/21/22 16:14 Range/Units White Blood Count 8.1 4.3-11.0 10^3/uL Red Blood Count 5.22 H 3.80-5.11 10^6/uL Hemoglobin 16.1 H 11.5-16.0 g/dL Hematocrit 47 35-52 % Mean Corpuscular Volume 90 80-99 fL Mean Corpuscular Hemoglobin 31 25-34 pg Mean Corpuscular Hemoglobin Concent 34 32-36 g/dL Red Cell Distribution Width 12.5 10.0-14.5 % Platelet Count 222 130-400 10^3/uL Mean Platelet Volume 10.3 9.0-12.2 fL Immature Granulocyte % (Auto) 0 % Neutrophils (%) (Auto) 81 H 42-75 % Lymphocytes (%) (Auto) 10 L 12-44 % Monocytes (%) (Auto) 8 0-12 % Eosinophils (%) (Auto) 0 0-10 % Basophils (%) (Auto) 0 0-10 % Neutrophils # (Auto) 6.6 1.8-7.8 X 10^3 Lymphocytes # (Auto) 0.8 L 1.0-4.0 X 10^3 Monocytes # (Auto) 0.7 0.0-1.0 X 10^3 Eosinophils # (Auto) 0.0 0.0-0.3 10^3/uL Basophils # (Auto) 0.0 0.0-0.1 10^3/uL Immature Granulocyte # (Auto) 0.0 0.0-0.1 10^3/uL Sodium Level 128 L 135-145 MMOL/L Potassium Level 4.7 3.6-5.0 MMOL/L Chloride Level 91 L 98-107 MMOL/L Carbon Dioxide Level 23 21-32 MMOL/L Anion Gap 14 5-14 MMOL/L Blood Urea Nitrogen 28 H 7-18 MG/DL Creatinine 0.80 0.60-1.30 MG/DL Estimat Glomerular Filtration Rate 73 BUN/Creatinine Ratio 35 Glucose Level 112 H 70-105 MG/DL Calcium Level 9.9 8.5-10.1 MG/DL Corrected Calcium 9.7 8.5-10.1 MG/DL Magnesium Level 2.1 1.6-2.4 MG/DL Total Bilirubin 1.3 H 0.1-1.0 MG/DL Aspartate Amino Transf (AST/SGOT) 21 5-34 U/L Alanine Aminotransferase (ALT/SGPT) 18 0-55 U/L Alkaline Phosphatase 63 40-136 U/L C-Reactive Protein High Sensitivity 4.00 H 0.00-0.50 MG/DL B-Type Natriuretic Peptide 47.1 <100.0 PG/ML Total Protein 7.4 6.4-8.2 GM/DL Albumin 4.3 3.2-4.5 GM/DL Thyroid Stimulating Hormone (TSH) 3.66 0.35-4.94 UIU/ML Free Thyroxine 1.40 0.70-1.48 NG/DL Influenza Type A (RT-PCR) Not Detected Not Detecte Influenza Type B (RT-PCR) Not Detected Not Detecte SARS-CoV-2 RNA (RT-PCR) Not Detected Not Detecte Urine Color YELLOW Urine Clarity CLEAR Urine pH 6.0 5-9 Urine Specific [place] 1.010 L 1.016-1.022 Urine Protein TRACE H NEGATIVE Urine Glucose (UA) NEGATIVE NEGATIVE Urine Ketones 1+ H NEGATIVE Urine Nitrite NEGATIVE NEGATIVE Urine Bilirubin NEGATIVE NEGATIVE Urine Urobilinogen 1.0 < = 1.0 MG/DL Urine Leukocyte Esterase NEGATIVE NEGATIVE Urine RBC (Auto) NEGATIVE NEGATIVE Urine RBC RARE /HPF Urine WBC NONE /HPF Urine Squamous Epithelial Cells RARE /HPF Urine Crystals NONE /LPF Urine Bacteria NEGATIVE /HPF Urine Casts NONE /LPF Urine Mucus NEGATIVE /LPF Urine Culture Indicated NO My Orders Orders - LAYNE SALAZAR MD Ua Culture If Indicated (06/21/22 13:42) Cbc With Automated Diff (06/21/22 14:21) Comprehensive Metabolic Panel (06/21/22 14:21) Hs C Reactive Protein (06/21/22 14:21) Magnesium (06/21/22 14:21) Chest 1 View, Ap/Pa Only (06/21/22 14:21) Ed Iv/Invasive Line Start (06/21/22 14:21) Covid 19 Inhouse Test (06/21/22 14:21) Influenza A And B By Pcr (06/21/22 14:21) Ondansetron Injection (Zofran Injectio (06/21/22 14:30) Bnp [place] (06/21/22 14:26) Ns Iv 500 Ml (Sodium Chloride 0.9%) (06/21/22 15:30) Gill Cath (06/21/22 15:46) Hydrocodone/Apap 5/325 Tablet (Lortab 5 (06/21/22 16:00) Code/Resuscitation (06/21/22 16:14) Thyroid Stimulating Hormone (06/21/22 16:15) Free T4 (Free Thyroxine) (06/21/22 16:15) Medications Given in ED Current Medications Medications Dose Ordered Sig/Hodan Route Start Time Stop Time Status Last Admin Dose Admin Acetaminophen/ Hydrocodone Bitart 1 ea ONCE ONCE PO 06/21/22 16:00 06/21/22 16:01 DC 06/21/22 16:05 1 EA Ondansetron HCl 4 mg ONCE ONCE IVP 06/21/22 14:30 06/21/22 14:31 DC 06/21/22 14:31 4 MG Sodium Chloride 500 ml @ 0 mls/hr Q0M ONCE IV 06/21/22 15:30 06/21/22 15:31 DC 06/21/22 15:43 500 MLS/HR Vital Signs/I&O 06/21/22 06/21/22 13:41 13:41 Temp 35.4 Pulse 85 Resp 16 B/P (MAP) 146/100 (115) Pulse Ox 100 O2 Delivery Room Air Room Air Capillary Refill : Less Than 3 Seconds Blood Pressure Mean: 115 Progress Note : Progress Note Patient was interviewed and examined. Labs were obtained including CBC, CMP, CRP, BNP, and urinalysis. She was noted to be mildly hyponatremic with a sodium of 128. Urine demonstrated 1+ ketones suggesting early hypovolemia. BNP was unremarkable. CRP was slightly elevated at 4. Viral swabs for influenza and COVID-19 were negative. Patient was hydrated with a 500 mL of normal saline IV fluid. Chest x-ray was obtained and was unremarkable. Ultimately, patient is feeling at home. She is being admitted for treatment of hyponatremia, pain cont rol, supportive care, and to possibly obtain an MRI on [place] to further characterize the nature of her lumbar fracture and determine if kyphoplasty is a viable option. I discussed CODE STATUS with the patient and she wishes to have a DNR order. Pain was treated with hydrocodone and nausea was treated with Zofran while in the ER. Diagnostic Imaging Diagonstic Imaging: Xray Plain Films/CT/US/NM/MRI: chest Comments NAME: JEIMY YAN [facility] REC#: [id number] PT STATUS: REG ER : 1940 PHYSICIAN: LAYNE SALAZAR MD ADMIT DATE: 06/21/22/ER Signed Date of Exam:06/21/22 CHEST 1 VIEW, AP/PA ONLY INDICATION: Cough. TECHNIQUE: Single view chest 2:31 PM. CORRELATION STUDY: 01/16/2016 FINDINGS: Heart size enlarged. Vasculature overall within normal limits. Lung mon hyperinflated but overall clear. No significant infiltrate. IMPRESSION: 1. Hyperintense lung mon. No infiltrate. Borderline cardiac enlargement without failure. Dictated by: Dictated on workstation # [id number] Dict: 06/21/22 1452 Trans: 06/21/22 1607 [facility] [id number] Interpreted by: VICKI SAUER DO Electronically signed by: VICKI SAUER DO 06/21/22 1607 Departure Communication (Admissions) Time/Spoke to Admitting Phy: 16:00 Dr. Ritter Impression Primary Impression: Hyponatremia Additional Impressions: L1 vertebral fracture Qualified Codes: S32.019A - Unspecified fracture of first lumbar vertebra, initial encounter for closed fracture Weakness Fall on same level Qualified Codes: W18.30XA - Fall on same level, unspecified, initial encounter Disposition: ADMITTED INPATIENT Condition: Stable Admissions Decision to Admit Reason: Admit from ER (General) Decision to Admit/Date: Jun 21, 2022 Time/Decision to Admit Time: 16:00 Departure-Patient Inst. Referrals: JOSE RAUL RITTER MD (PCP/Family) Primary Care Physician LAYNE SALAZAR MD Jun 21, 2022 14:57
[2022-06-21] MEDS ORDERED: NS IV 500 ML 500 ML IV ONE (15:30)
[2022-06-21] MEDS ORDERED: HYDROcodone/APAP 5 MG/325 MG (LORTAB) TAB PO ONE (16:00)
[2022-06-21 16:23] LABS: BILIRUBIN,URINE NEGATIVE (NEGATIVE); CLARITY,URINE CLEAR; COLOR,URINE YELLOW; GLUCOSE, URINE (UA) NEGATIVE (NEGATIVE); KETONES,URINE 1+ (NEGATIVE); LEUKOCYTE ESTERASE ,URINE NEGATIVE (NEGATIVE); NITRITE,URINE NEGATIVE (NEGATIVE); PROTEIN,URINE TRACE (NEGATIVE)
[2022-06-21 16:30] LABS: BACTERIA,URINE NEGATIVE /HPF; RBC,URINE RARE /HPF; SQUAMOUS EPITHELIAL CELL,UR RARE /HPF
[2022-06-21 16:59] LABS: FREE T4 (FREE THYROXINE) 1.4 NG/DL (0.70-1.48)
[2022-06-21] MEDS ORDERED: AMLO2.5T4 PO (17:40)
[2022-06-21] MEDS ORDERED: LOSA25TA41 PO (17:40)
[2022-06-21] MEDS ORDERED: ALEN70TA80 PO (17:40)
[2022-06-21] MEDS ORDERED: LEVO25TA2 PO (17:40)
[2022-06-21] MEDS: NS IV 1000 ML 1,000 ML IV SCH (17:49)
[2022-06-21] MEDS: fentaNYL INJ 100 MCG/2 ML AMP IV PRN (18:23)
[2022-06-21] MEDS: ONDANSETRON 4 MG/2 ML (SDV) Z0FRAN IV PRN (18:23)
[2022-06-21 19:35] VITALS: BP 167/77
[2022-06-21] MEDS: HYDROcodone/APAP 5 MG/325 MG (LORTAB) TAB PO PRN (20:00)
[2022-06-21 23:11] VITALS: BP 134/82
[2022-06-22 03:19] VITALS: BP 138/75
[2022-06-22] MEDS: NS IV 1000 ML 1,000 ML IV SCH ×2 (03:57→14:25)
[2022-06-22 06:05] LABS: CALCIUM 8.2 MG/DL (8.5-10.1); CREATININE SERUM 0.61 MG/DL (0.60-1.30); POTASSIUM 3.9 MMOL/L (3.6-5.0)
[2022-06-22 07:27] VITALS: BP 147/79
[2022-06-22] MEDS: HYDROcodone/APAP 5 MG/325 MG (LORTAB) TAB PO PRN (07:33)
--- NOTE | 2022-06-22 09:21 | History & Physical ---
History of Present Illness History of Present Illness Reason for visit/HPI Pt is an 81 y/o female who is known to me from clinic. She presented to the hospital after having uncontrolled back pain and being unable to be managed at home. The pain started on Thursday of last week when the pt fell while turning from her refrigerator with a bowl in her hands, she scooted to a phone (despite having a medicalert button on her person) and called her worker who then called the pt's family who eventually called 911. The pt was evaluated in the ER - found to have a possible fracture of L1, and sent home with pain medication. She reports the pain has not been well controlled, she has become nauseated, has had bloating, and has been "drinking Peptobismol" to control her symptoms. Date of Admission Jun 21, 2022 at 16:44 Date Seen by a Provider: Jun 22, 2022 Time Seen by a Provider: 09:20 I consulted on this patient on 06/22/22 09:20 Attending Physician Jose Raul Ritter MD Admitting Physician Admitting Physician: Jose Raul Ritter MD Attending Physician: Jose Raul Ritter MD Consult Allergies and Home Medications Allergies Coded Allergies: No Known Drug Allergies (Unverified , 06/16/22) Patient Home Medication List Home Medication List Reviewed: Yes Alendronate Sodium (Alendronate Sodium) 70 Mg Tablet, 70 MG PO WEEK, (Reported) Entered as Reported by: MEENAKSHI BHATT on 06/21/221739 Last Action: Held Amlodipine Besylate (Amlodipine Besylate) 2.5 Mg Tablet, 1 EACH PO HS, (Reported) Entered as Reported by: MEENAKSHI BHATT on 06/21/221739 Last Action: Continued Aspirin (Aspirin) 81 Mg Tab.chew, 81 MG PO DAILY, (Reported) Entered as Reported by: JOHANN WRIGHT on 01/11/162023 Last Action: Continued Cholecalciferol (Vitamin D3) (Vitamin D3) 1,000 Unit Tablet, 1,000 UNIT PO DAILY, (Reported) Entered as Reported by: NEFTALY CAMARENA on 01/14/16 1101 Last Action: Held Hydrocodone/Acetaminophen (Hydrocodone-Acetamin 5-325 mg) 5 Mg-325 Mg Tablet, 1 TAB PO Q4H PRN for PAIN-MODERATE (5-7) Prescribed by: JESSA GONZALEZ MD on 06/16/22 1550 Last Action: Reviewed Levothyroxine Sodium (Synthroid) 25 Mcg Tablet, 0.5 EACH PO DAILY, (Reported) Entered as Reported by: MEENAKSHI BHATT on 06/21/221739 Last Action: Continued Losartan Potassium (Losartan Potassium) 25 Mg Tablet, 1 EA PO DAILY, (Reported) Entered as Reported by: MEENAKSHI BHATT on 06/21/221739 Last Action: Continued Metoprolol Tartrate (Metoprolol Tartrate) 100 Mg Tablet, 100 MG PO BID, (Reported) Entered as Reported by: JOHANN WRIGHT on 01/11/162023 Last Action: Reviewed Naproxen (Naprosyn) 500 Mg Tablet, 500 MG PO BID PRN for PAIN, (Reported) Entered as Reported by: JOSS HUI on 04/29/11 1203 Last Action: Held Discontinued Medications Alendronate Sodium (Alendronate Sodium) 70 Mg Tablet, 70 MG PO Tu, (Reported) Discontinued Reason: New Order Entered as Reported by: NEFTALY CAMARENA on 01/14/161100 Last Action: Discontinued Cephalexin (Cephalexin) 500 Mg Capsule, 500 MG PO TID Discontinued Reason: No Longer Taking Prescribed by: JOSE RAUL RITTER on 01/17/16 0909 Last Action: Discontinued Hydrochlorothiazide (Hydrochlorothiazide) 25 Mg Tablet, 25 MG PO DAILY, (Reported) Discontinued Reason: No Longer Taking Entered as Reported by: JOHANN WRIGHT on 01/11/162023 Last Action: Discontinued L.acidoph & Paracasei,B.lactis (Probiotic) 1 Each Capsule, 1 CAP PO BID, (Reported) Discontinued Reason: No Longer Taking Entered as Reported by: NEFTALY CAMARENA on 01/14/16 110 Last Action: Discontinued Levothyroxine Sodium (Levothyroxine Sodium) 25 Mcg Tablet, 25 MCG PO DAILY, (Reported) Discontinued Reason: New Order Entered as Reported by: JOHANN WRIGHT on 01/11/162023 Last Action: Discontinued Meclizine HCl (Meclizine HCl) 25 Mg Tablet, 25 MG PO Q6H PRN for DIZZINESS Discontinued Reason: No Longer Taking Prescribed by: GENEVIEVE HOPKINS on 11/21/18 1545 Last Action: Discontinued Nystatin (Nystatin) 100,000 Unit/1 Ml Oral.susp, 5 ML PO Q6HR Discontinued Reason: No Longer Taking Prescribed by: JOSE RAUL RITTER on 01/17/16 0908 Last Action: Discontinued Past Lxeucsw-Xochyz-Qxokfq Hx Patient Social History Marrital Status: Number of Children: 1 Number of living children: 1 Living Status: lives alone in her home Employed/Student: retired Tobacco Use?: No Smoking Status: Never a Smoker Use of E-Cig and/or Vaping dev: No Substance use?: No Alcohol Use?: No Pt feels they are or have been: No Immunizations Up To Date Date of Influenza Vaccine: Feb 10, 2022 First/Initial COVID19 Vaccinat: "5 SHOTS" Date of Pneumonia Vaccine: Dec 21, 2014 Seasonal Allergies Seasonal Allergies: Yes Current Status status: No Advance Directives: Yes Advance Directive Location: Home Communicates: Verbally Primary Language: Martiniquais Preferred Spoken Language: Martiniquais Is interpretation needed?: No Sensory deficits: Vision impairment Implanted or Applied Medical D: Orthopedic hardware Past Medical History Surgeries: Hysterectomy, Orthopedic Currently Using CPAP: No Currently Using BIPAP: No Hypertension Arthritis Hypothyroidsim Loss of Vision: Denies Hearing Impairment: Denies Oral Blood Disorders: No Family Medical History Reviewed and Corrections made Heart Disease, Diabetes, Hypertension, Other Conditions/Hx Review of Systems Constitutional: No chills, No diaphoresis, No fever, No malaise; weakness EENTM: No hoarseness, No throat pain Respiratory: No cough, No dyspnea on exertion; short of breath Cardiovascular: No chest pain; edema; No palpitations Gastrointestinal: abdominal pain; No diarrhea; nausea; No vomiting; other (bloating) Genitourinary: no symptoms reported, other (sandoval in place) Musculoskeletal: back pain Skin: no symptoms reported Psychiatric/Neurological: Anxiety; Denies Weakness All Other Systems Reviewed Negative Unless Noted: Yes Physical Exam Vital Signs Vital Signs - First Documented 06/21/22 13:41 Temp 35.4 Pulse 85 Resp 16 B/P (MAP) 146/100 (115) Pulse Ox 100 O2 Delivery Room Air Capillary Refill : Less Than 3 Seconds Height, Weight, BMI Height: 5'4.00" Weight: 180lbs. 0.2oz. 81.558358jb; 27.51 BMI Method:Stated General Appearance: WD/WN, Mild Distress (due to pain) HEENT: PERRL/EOMI, Pharynx Normal Neck: Non Tender, Supple, Limited Range of Motion (chronic kyphosis) Respiratory: Chest Non Tender, Lungs Clear, Normal Breath Sounds, No Accessory Muscle Use, No Respiratory Distress Cardiovascular: Regular Rate, Rhythm, Normal Peripheral Pulses Gastrointestinal: Other (high pitched bowel sounds, bloating, tympanitic) Rectal: Deferred Back: Vertebral Tenderness (lumbar spine), Other (kyphosis) Extremity: Non Tender, Pedal Edema Neurologic/Psychiatric: Alert, Oriented x3, Normal Mood/Affect Skin: Normal Color, Warm/Dry Assessment/Plan Assessment and Plan Osteoporotic fracture of Lumbar spine Lumbar spine pain Uncontrolled pain Obstipation Abdominal bloating Chronic Hypertension Chronic Hypothyroidism Hyponatremia - acute Mild epistaxis Osteoporotic fracture of Lumbar spine with Uncontrolled pain of Lumbar spine - hold fosamax at this time - prn pain medication IV and oral - check MRI of lumbar spine tomorrow morning since it is not available over the weekend. Obstipation with Abdominal bloating - check KUB - order for fleet enema due to signs of constipation on the lumbar CT scan from Thursday with progressive symptoms. - clear liquid diet for now. monitor symptoms. Chronic Hypertension - restart amlodipine and losartan, waiting on beta windy for right now. Chronic Hypothyroidism - resume levothyroxine. Hyponatremia - acute - improved on fluids - decrease fluids from 100mL/hr to 75mL/hr. Nose bleed - nasal saline DISCHARGE PLANNING - discussed with pt and DTR - Yael will need to go to SNF for acute rehabilitation post hospitalization dvt prophylaxis with lovenox and scd's gi prophylaxis with ppi Admission Diagnosis Osteoporotic fracture of Lumbar spine Lumbar spine pain Uncontrolled pain Obstipation Abdominal bloating Chronic Hypertension Chronic Hypothyroidism Hyponatremia - acute Admission Status: Inpatient Order (span 2 midnights) Reason for Inpatient Admission: inpt admission for uncontrolled pain, lumbar fracture - will require at least 48 hours to 72 hours for pain control and further investigation JOSE RAUL RITTER MD Jun 22, 2022 09:21
[2022-06-22] MEDS ORDERED: FLEET ENEMA ADULT 1 EA BTL PR ONE (09:30)
[2022-06-22] MEDS ORDERED: PANTOPRAZOLE 40 MG (PROTONIX) TAB PO ONE (10:15)
[2022-06-22] MEDS: fentaNYL INJ 100 MCG/2 ML AMP IV PRN (10:20)
[2022-06-22] MEDS: SALINE NASAL SPRAY (OCEAN) 45 ML BTL SCH ×4 (10:28→19:38)
[2022-06-22] MEDS: LOSARTAN 25 MG (COZAAR) TAB PO SCH (10:28)
[2022-06-22] MEDS: DICLOFENAC 1% GEL 100 GM (VOLTAREN) TUBE TOP SCH ×4 (10:28→19:38)
[2022-06-22] MEDS: ENOXAPARIN 40 MG/0.4 ML (LOVENOX) SYR SC SCH (10:29)
[2022-06-22] MEDS ORDERED: SIMETHICONE 80 MG (MYLICON) CHEW PO ONE (10:30)
[2022-06-22 11:20] VITALS: BP 143/77
--- NOTE | 2022-06-22 11:26 | Diagnostic Imaging Report ---
INDICATION: Abdominal pain. COMPARISON: None. DISCUSSION: Two views of the abdomen were obtained. The lung bases are unremarkable. Marked gaseous distention of the colon and to a lesser degree the small bowel. There is no stool identified within the colon. Findings likely represent a generalized adynamic ileus. Stones are noted within the right upper quadrant, likely within the gallbladder. No osseous abnormality. IMPRESSION: Gas-filled large and small bowel loops, likely a generalized adynamic ileus. Dictated by: Dictated on workstation # [id number]
[2022-06-22] MEDS: SIMETHICONE 80 MG (MYLICON) CHEW PO SCH ×3 (14:25→19:38)
[2022-06-22 15:34] VITALS: BP 144/76
[2022-06-22 19:35] VITALS: BP 156/91
[2022-06-22] MEDS: amLODIPine 2.5MG (NORVASC) TAB PO SCH (19:38)
[2022-06-22 23:47] VITALS: BP 132/79
[2022-06-23] VITALS (7 sets, daily range): BP systolic 135–163; BP diastolic 75–89
[2022-06-23] MEDS: NS IV 1000 ML 1,000 ML IV SCH ×2 (03:04→13:28)
[2022-06-23 05:30] LABS: HEMATOCRIT 41 % (35-52); HEMOGLOBIN 13.5 g/dL (11.5-16.0); MEAN CORPUSCULAR HEMOGLOBIN 31 pg (25-34); MEAN CORPUSCULAR HGB CONC 33 g/dL (32-36); MEAN CORPUSCULAR VOLUME 93 fL (80-99); MEAN PLATELET VOLUME 9.8 fL (9.0-12.2); PLATELET COUNT 171 10^3/uL (130-400); WHITE BLOOD COUNT 7.5 10^3/uL (4.3-11.0)
[2022-06-23 06:02] LABS: CALCIUM 8.2 MG/DL (8.5-10.1); CREATININE SERUM 0.55 MG/DL (0.60-1.30); POTASSIUM 3.5 MMOL/L (3.6-5.0)
--- NOTE | 2022-06-23 08:17 | Progress Note ---
Subjective Subjective Date Seen by Provider: Jun 23, 2022 Time Seen by Provider: 08:15 Pt reports that her stomach feels a little better. She reports that the NG tube is upsetting to her because of how bad her nose hurts. Her back hurts as well, worse with movement from side to side. Review of Systems General: No Chills; Fatigue, Malaise HEENT: No Head Aches Pulmonary: No Dyspnea, No Cough Cardiovascular: No: Chest Pain, Palpitations Gastrointestinal: Abdominal Pain, Other (dyspepsie); No: Nausea Musculoskeletal: back pain Neurological: Weakness; No: Confusion All Other Systems Reviewed All Other Systems Reviewed: Yes Objective Exam Vital Signs Vital Signs Date Time Temp Pulse Resp B/P (MAP) Pulse Ox O2 Delivery O2 Flow Rate FiO2 06/23/22 07:39 36.9 101 18 151/89 (109) 93 Room Air 06/23/22 03:36 36.1 97 16 135/76 (95) 96 Room Air 06/22/22 23:47 36.1 106 16 132/79 (96) 95 Room Air 06/22/22 19:40 Room Air 06/22/22 19:35 36.2 100 17 156/91 (112) 94 Room Air 06/22/22 15:34 37.3 90 18 144/76 (98) 95 Room Air 06/22/22 11:20 36.6 99 18 143/77 (99) 94 Room Air I & O 06/23/22 06:59 Intake Total 1200 ml Output Total 2750 ml Balance -1550 ml General Appearance: WD/WN, Mild Distress (due to pain) HEENT: PERRL/EOMI, Pharynx Normal Neck: Non Tender, Supple, Limited Range of Motion (chronic kyphosis) Respiratory: Chest Non Tender, Lungs Clear, Normal Breath Sounds, No Accessory Muscle Use, No Respiratory Distress Cardiovascular: Regular Rate, Rhythm, Normal Peripheral Pulses Gastrointestinal: Other (high pitched bowel sounds, bloating, tympanitic) Rectal: Deferred Back: Vertebral Tenderness (lumbar spine), Other (kyphosis) Extremity: Non Tender, Pedal Edema Neurologic/Psychiatric: Alert, Oriented x3, Normal Mood/Affect Skin: Normal Color, Warm/Dry Results Lab Laboratory Tests 06/23/22 05:20: White Blood Count 7.5, Red Blood Count 4.39, Hemoglobin 13.5, Hematocrit 41, Me an Corpuscular Volume 93, Mean Corpuscular Hemoglobin 31, Mean Corpuscular Hemoglobin Concent 33, Red Cell Distribution Width 12.4, Platelet Count 171, Mean Platelet Volume 9.8, Sodium Level 137, Potassium Level 3.5L, Chloride Level 103, Carbon Dioxide Level 22, Anion Gap 12, Blood Urea Nitrogen 11, Creatinine 0.55L, Estimat Glomerular Filtration Rate 91, BUN/Creatinine Ratio 20, Glucose Level 66L, Calcium Level 8.2L Assessment/Plan Assessment/Plan Admission Dx Osteoporotic fracture of Lumbar spine Lumbar spine pain Uncontrolled pain Obstipation Abdominal bloating Chronic Hypertension Chronic Hypothyroidism Hyponatremia - acute Assessment and Plan Osteoporotic fracture of Lumbar spine Lumbar spine pain Uncontrolled pain Obstipation Abdominal bloating Chronic Hypertension Chronic Hypothyroidism Hyponatremia - acute Mild epistaxis Osteoporotic fracture of Lumbar spine with Uncontrolled pain of Lumbar spine - hold fosamax at this time - prn pain medication IV and oral - check MRI of lumbar spine tomorrow morning since it is not available over the weekend. Obstipation with Abdominal bloating - check KUB - order for fleet enema due to signs of constipation on the lumbar CT scan from Thursday with progressive symptoms. - clear liquid diet for now. monitor symptoms. Chronic Hypertension - restarted amlodipine and losartan, waiting on beta windy this morning. Chronic Hypothyroidism - resumed levothyroxine. Hyponatremia - acute - improved on fluids - decreased fluids from 100mL/hr to 75mL/hr. Nose bleed - nasal saline DISCHARGE PLANNING - discussed with pt and DTR - Ayel will need to go to SNF for acute rehabilitation post hospitalization at [facility] dvt prophylaxis with lovenox and scd's gi prophylaxis with ppi Admission Dx Osteoporotic fracture of Lumbar spine Lumbar spine pain Uncontrolled pain Obstipation Abdominal bloating Chronic Hypertension Chronic Hypothyroidism Hyponatremia - acute Clinical Quality Measures Admission Status Admission Dx Osteoporotic fracture of Lumbar spine Lumbar spine pain Uncontrolled pain Obstipation Abdominal bloating Chronic Hypertension Chronic Hypothyroidism Hyponatremia - acute JOSE RAUL VALDERRAMA MD Jun 23, 2022 08:17
[2022-06-23] MEDS ORDERED: ACHD5005 PO (08:43)
[2022-06-23] MEDS: fentaNYL INJ 100 MCG/2 ML AMP IV PRN ×2 (08:45→15:43)
[2022-06-23] MEDS ORDERED: NAPR-915 PO (08:46)
[2022-06-23] MEDS ORDERED: MELA1TAB72 PO (08:47)
[2022-06-23] MEDS ORDERED: CHOL-34 PO (08:48)
[2022-06-23] MEDS: ASPIRIN 81 MG CHEW (CHILDREN'S ASA) PO SCH (09:17)
[2022-06-23] MEDS: DICLOFENAC 1% GEL 100 GM (VOLTAREN) TUBE TOP SCH ×4 (09:18→19:43)
[2022-06-23] MEDS: LEVOTHYROXINE 25 MCG (LEVOTHROID) TAB PO SCH (09:18)
[2022-06-23] MEDS: ENOXAPARIN 40 MG/0.4 ML (LOVENOX) SYR SC SCH (09:19)
[2022-06-23] MEDS: LOSARTAN 25 MG (COZAAR) TAB PO SCH (09:19)
[2022-06-23] MEDS: SALINE NASAL SPRAY (OCEAN) 45 ML BTL SCH ×4 (09:19→19:43)
[2022-06-23] MEDS: PANTOPRAZOLE 40 MG (PROTONIX) TAB PO SCH (09:19)
[2022-06-23] MEDS: SIMETHICONE 80 MG (MYLICON) CHEW PO SCH ×3 (09:19→19:42)
[2022-06-23] MEDS: ONDANSETRON 4 MG/2 ML (SDV) Z0FRAN IV PRN (09:28)
[2022-06-23] MEDS ORDERED: METHYLNALTREXONE 12 MG/0.6 ML (RELISTOR) VIAL SQ NR (09:30)
--- NOTE | 2022-06-23 12:52 | Diagnostic Imaging Report ---
PROCEDURE: MRI lumbar spine. TECHNIQUE: Multiplanar, multisequence MRI of the lumbar spine was performed without contrast. INDICATION: Back pain COMPARISON: CT lumbar spine the 2022 FINDINGS: Acute compression fracture of L1 with increased height loss since the CT on 06/16/2022 now with a 50% height loss. Mild to moderate associated retropulsion causing mild spinal canal narrowing at T12-L1. Acute compression fracture along the left lateral vertebral body of T11 with minimal height loss. The lumbar lordosis is otherwise preserved. Degenerative endplate edema seen along the inferior endplate of L3 and L4. Moderate to severe multilevel disc height loss and disc desiccation. Multilevel Schmorl nodes. Included views of the abdomen demonstrates no acute abnormality. T12-L1: Mild bony retropulsion causing mild to moderate spinal canal narrowing. Mild facet arthropathy. Mild bilateral neural foraminal narrowing. L1-L2: Disc bulge. Mild facet arthropathy. Mild to moderate spinal canal narrowing. Moderate right and mild left neural foraminal narrowing. L2-L3: Disc bulge. Ligamentum flavum thickening. Moderate facet arthropathy. Moderate spinal canal stenosis. Mild bilateral neural foraminal narrowing. L3-L4: Disc bulge. Ligamentum flavum thickening. Moderate facet arthropathy. Moderate spinal canal stenosis. Mild bilateral neural foraminal narrowing. L4-L5: Disc bulge. Mild facet arthropathy. Mild to moderate spinal canal narrowing. Mild bilateral neural foraminal narrowing. L5-S1: Disc bulge with annular fissure. Mild spinal canal narrowing. Mild right neural foraminal narrowing. No left neural foraminal narrowing. IMPRESSION: Acute compression fracture of L1 recent height loss now 50% height loss. Associated bony retropulsion causing mild to moderate spinal canal stenosis at T12-L1. Acute compression deformity along the left lateral aspect of T11 with minimal height loss. Moderate multilevel degenerative changes with moderate multilevel spinal canal stenosis described level by level above. Dictated by: Dictated on workstation # [id number]
[2022-06-23] MEDS: amLODIPine 2.5MG (NORVASC) TAB PO SCH (19:42)
[2022-06-23] MEDS: HYDROcodone/APAP 5 MG/325 MG (LORTAB) TAB PO PRN (19:47)
[2022-06-23] MEDS: meTOprolol TARTRATE 50 MG (LOPRESSOR) TAB PO SCH (21:39)
[2022-06-23] MEDS ORDERED: meTOprolol TARTRATE 50 MG (LOPRESSOR) TAB ONE (21:39)
[2022-06-24] MEDS: HYDROcodone/APAP 5 MG/325 MG (LORTAB) TAB PO PRN ×2 (04:21→13:45)
[2022-06-24] MEDS: NS IV 1000 ML 1,000 ML IV SCH ×2 (04:21→19:09)
[2022-06-24 04:33] VITALS: BP 155/88
[2022-06-24 07:39] VITALS: BP 157/78
[2022-06-24] MEDS: SALINE NASAL SPRAY (OCEAN) 45 ML BTL SCH ×4 (09:17→20:30)
[2022-06-24] MEDS: ASPIRIN 81 MG CHEW (CHILDREN'S ASA) PO SCH (09:18)
[2022-06-24] MEDS: LOSARTAN 25 MG (COZAAR) TAB PO SCH (09:18)
[2022-06-24] MEDS: PANTOPRAZOLE 40 MG (PROTONIX) TAB PO SCH (09:18)
[2022-06-24] MEDS: SIMETHICONE 80 MG (MYLICON) CHEW PO SCH ×4 (09:18→20:32)
[2022-06-24] MEDS: meTOprolol TARTRATE 50 MG (LOPRESSOR) TAB PO SCH ×2 (09:18→20:32)
[2022-06-24] MEDS: DICLOFENAC 1% GEL 100 GM (VOLTAREN) TUBE TOP SCH ×4 (09:19→20:31)
[2022-06-24] MEDS: LEVOTHYROXINE 25 MCG (LEVOTHROID) TAB PO SCH (09:19)
[2022-06-24] MEDS: ENOXAPARIN 40 MG/0.4 ML (LOVENOX) SYR SC SCH (09:20)
--- NOTE | 2022-06-24 09:23 | Progress Note ---
Subjective Subjective Date Seen by Provider: Jun 24, 2022 Time Seen by Provider: 08:45 Pt reports that she is just not feeling well - but that is due to pain in her back. She reports that her stomach is full, but does feel better. Review of Systems General: No Chills; Fatigue, Malaise HEENT: No Head Aches Pulmonary: No Dyspnea, No Cough Cardiovascular: No: Chest Pain, Palpitations Gastrointestinal: Abdominal Pain, Other (dyspepsie); No: Nausea Musculoskeletal: back pain Neurological: Weakness; No: Confusion All Other Systems Reviewed All Other Systems Reviewed: Yes Objective Exam Vital Signs Vital Signs Date Time Temp Pulse Resp B/P (MAP) Pulse Ox O2 Delivery O2 Flow Rate FiO2 06/24/22 07:53 96 Room Air 06/24/22 07:39 36.8 87 18 157/78 (104) 96 Room Air 06/24/22 04:33 36.9 88 16 155/88 (110) 93 Room Air 06/23/22 23:32 36.8 79 18 156/77 (103) 96 Room Air 06/23/22 20:59 36.5 107 18 145/83 (103) 95 Room Air 06/23/22 19:45 Room Air 06/23/22 19:33 37.1 113 18 163/85 (111) 95 Room Air 06/23/22 15:51 37.4 111 18 148/75 (99) 94 Room Air 06/23/22 12:05 36.6 100 18 145/85 (105) 94 Room Air I & O 06/24/22 07:00 Intake Total 60 ml Output Total 1500 ml Balance -1440 ml General Appearance: WD/WN, Mild Distress (due to pain) HEENT: PERRL/EOMI Neck: Non Tender, Supple, Limited Range of Motion (chronic kyphosis) Respiratory: Chest Non Tender, Lungs Clear, Normal Breath Sounds, No Accessory Muscle Use, No Respiratory Distress Cardiovascular: Regular Rate, Rhythm, Normal Peripheral Pulses Gastrointestinal: Other (high pitched bowel sounds, bloating, tympanitic) Rectal: Deferred Back: Vertebral Tenderness (lumbar spine), Other (kyphosis) Extremity: Non Tender, Pedal Edema Neurologic/Psychiatric: Alert, Oriented x3, Normal Mood/Affect Skin: Normal Color, Warm/Dry Assessment/Plan Assessment/Plan Admission Dx Osteoporotic fracture of Lumbar spine Lumbar spine pain Uncontrolled pain Obstipation Abdominal bloating Chronic Hypertension Chronic Hypothyroidism Hyponatremia - acute Assessment and Plan Osteoporotic fracture of Lumbar spine Lumbar spine pain Uncontrolled pain Obstipation Abdominal bloating Chronic Hypertension Chronic Hypothyroidism Hyponatremia - acute Mild epistaxis Osteoporotic fracture of Lumbar spine with Uncontrolled pain of Lumbar spine - hold fosamax at this time - prn pain medication IV and oral with addition of fentanyl patch - Lumbar spine Fracture of L1, pt has a small piece slightly retropulsed into the canal - -the family and patient are NOT interested in surgery. Brace placed by therapy staff - MRI of lumbar spine as follows: - IMPRESSION: Acute compression fracture of L1 recent height loss now 50% height loss. Associated bony retropulsion causing mild tomoderate spinal canal stenosis at T12-L1. Acute compression deformity along the left lateral aspect of T11 with minimal height loss. Moderate multilevel degenerative changes with moderate multilevel spinal canal stenosis described level by level above. Obstipation with Abdominal bloating - checked repeat KUB - order for fleet enema due to signs of constipation on the lumbar CT scan from Thursday with progressive symptoms. - clear liquid diet for now. - NG tube placed monitor symptoms. Chronic Hypertension - restarted amlodipine and losartan, restarted metoprolol Chronic Hypothyroidism - resumed levothyroxine. Hyponatremia - acute - improved on fluids - decreased fluids from 100mL/hr to 75mL/hr. Nose bleed - nasal saline DISCHARGE PLANNING - discussed with pt and DTR - Yael will need to go to SNF for acute rehabilitation post hospitalization at [facility]- started pt/ot today - dvt prophylaxis with lovenox and scd's gi prophylaxis with ppi Admission Dx Osteoporotic fracture of Lumbar spine Lumbar spine pain Uncontrolled pain Obstipation Abdominal bloating Chronic Hypertension Chronic Hypothyroidism Hyponatremia - acute Clinical Quality Measures Admission Status Admission Dx Osteoporotic fracture of Lumbar spine Lumbar spine pain Uncontrolled pain Obstipation Abdominal bloating Chronic Hypertension Chronic Hypothyroidism Hyponatremia - acute JOSE RAUL VALDERRAMA MD Jun 24, 2022 09:23
[2022-06-24] MEDS ORDERED: fentaNYL PATCH 12 MCG (DURAGESIC) TD SCH (09:30)
[2022-06-24] MEDS: GABAPENTIN 100 MG (NEURONTIN) CAP PO SCH ×2 (10:04→20:32)
[2022-06-24 10:39] LABS: HEMATOCRIT 45 % (35-52); HEMOGLOBIN 14.9 g/dL (11.5-16.0); MEAN CORPUSCULAR HEMOGLOBIN 31 pg (25-34); MEAN CORPUSCULAR HGB CONC 33 g/dL (32-36); MEAN CORPUSCULAR VOLUME 92 fL (80-99); MEAN PLATELET VOLUME 9.8 fL (9.0-12.2); PLATELET COUNT 204 10^3/uL (130-400); WHITE BLOOD COUNT 6.1 10^3/uL (4.3-11.0)
[2022-06-24 10:56] LABS: CALCIUM 8.5 MG/DL (8.5-10.1); CREATININE SERUM 0.6 MG/DL (0.60-1.30); POTASSIUM 3.6 MMOL/L (3.6-5.0)
[2022-06-24 11:14] VITALS: BP 149/77
--- NOTE | 2022-06-24 11:26 | Occupational Therapy Eval ---
OT Evaluation-General/PLF Medical Diagnosis Admission Date Jun 21, 2022 at 16:44 Medical Diagnosis: Lumbar fracture Onset Date: Jun 24, 2022 Therapy Diagnosis Therapy Diagnosis: weakness, pain Height/Weight Height (Feet): 5 Height (Inches): 4.00 Weight (Pounds): 180 Weight (Ounces): 0.2 Precautions Precautions/Isolations: Standard Precautions Weight Bear Status Weight Bearing Restriction: Weight Bearing/Tolerated Referral Referral Reason: Activity Tolerance, Self Care, Evaluation/Treatment Medical History Pertinent Medical History: Hypothroidism Current History Reports pain but does not rate, required sequential instruction for log rolling and transitions Reviewed History: Yes Social History Home: Single Level Current Living Status: Alone Entry Into Home: Ramp ADL-Prior Level of Function SCALE: Activities may be completed with or without assistive devices. 3-Izskyrvdli-kjrjmwv completes the activity by him/herself with no assistance from a helper. 5-Set-up or Clean-up Assistance-helper sets up or cleans up; patient completes activity. [place] assists only prior to or following the activity. 4-Supervision or Touching Assistance-helper provides verbal cues and/or touching/steadying and/or contact guard assistance as patient completes activity. Assistance may be provided throughout the activity or intermittently. 3-Partial/Moderate Assistance-helper does LESS THAN HALF the effort. [place] lifts, holds or supports trunk or limbs, but provides less than half the effort. 2-Substantial/Maximal Assistance-helper does MORE THAN HALF the effort. [place] lifts or holds trunk or limbs and provides more than half the effort. 2-Tftddudpa-pbbcqr does ALL the effort. Patient does none of the effort to complete the activity. Or, the assistance of 2 or more helpers is required for the patient to complete the activity. If activity was not attempted, code reason: 7-Patient Refused. 9-Not Applicable-not attempted and the patient did not perform the activity before the current illness, exacerbation or injury. 10-Not Attempted due to Environmental Limitations-(lack of equipment, weather restraints, etc.). 88-Not Attempted due to Medical Conditions or Safety Concerns. Self Care: Needed Some Help Functional Cognition: Needed Some Help DME/Equipment: Grab Bars 10 hours in manager nursing home, inhome career services director present Drive Self: No OT Current Status Subjective Supine in bed agreeable to OT Mental Status/Objective Patient Orientation: Person, Place, Time, Situation Attachments: Gill Catheter, IV, SCD's Current Glasses/Contacts: Yes Upper Extremity ROM BUE ROM WFLS soft tissue reduces joint approximation Upper Extremity Strength +3/5 grossly ADL-Treatment Eating (QC): 88 (NG tube) Oral Hygiene (QC): 4 Shower/Bathe Self (QC): 7 Upper Body Dressing (QC): 3 Lower Body Dressing (QC): 1 On/Off Footwear (QC): 1 Toileting Hygiene (QC): 1 soiled gown changed, TLSO applied for transfers, Education OT Patient Education: Correct positioning, Exercise program, Instructions d on/doff splint/brace, Instructions to caregiver, Modified ADL techniques, Progress toward Goal/Update tx plan, Purpose of tx/functional activities, Reviewed precautions, Rehab process, Safety issues, Transfer techniques, Use of adapted equipment Teaching Recipient: Patient, Family Teaching Methods: Demonstration, Discussion Response to Teaching: Reinforcement Needed OT Alf Goals Editor House Organ Goals Eating (QC): 6 Oral Hygiene (QC): 6 Toileting Hygiene (QC): 4 Shower/Bathe Self (QC): 4 Upper Body Dressing (QC): 4 Lower Body Dressing (QC): 4 On/Off Footwear (QC): 4 1=Demonstrate adherence to instructed precautions during ADL tasks. 2=Patient will verbalize/demonstrate understanding of assistive devices/modifications for ADL. 3=Patient will improve strength/tolerance for activity to enable patient to perform ADL's. OT Education/Plan Problem List/Assessment Assessment: Decreased Activ Tolerance, Dependent Transfers, Impaired Bed Mobility, Impaired Coordination, Impaired Funct Balance, Impaired Self-Care Skills Discharge Recommendations Plan/Recommendations: Continue POC Treatment Plan/Plan of Care Treatment,Training & Education: Yes Patient would benefit from OT for education, treatment and training to promote independence in ADL's, mobility, safety and/or upper extremity function for AD L's. Plan of Care: ADL Retraining, Caregiver Training, Functional Mobility, Group Exercise/Act as Ind, Orthotic Fitting/Training, UE Funct Exercise/Act Treatment Duration: Jun 28, 2022 Frequency: 3 times per week (3-5 times per week) Estimated Hrs Per Day: .25 hour per day Agreement: Yes Rehab Potential: Guarded Remains up in recliner w/ warm blanket, all needs met, family in room Time Start Time: 11:00 Stop Time: 11:23 DATE: Jun 24, 2022 Total Time Billed (hr/min): 23 Billed Treatment Time DORIS WILLSON 23 min ZAHRAA GALLARDO OT Jun 24, 2022 11:26
--- NOTE | 2022-06-24 11:31 | Physical Therapy Evaluation ---
PT Evaluation-General Medical Diagnosis Admission Date Jun 21, 2022 at 16:44 Medical Diagnosis: L1 fracture Onset Date: Jun 21, 2022 Therapy Diagnosis Therapy Diagnosis: generalized weakness/debility Height/Weight Height (Feet): 5 Height (Inches): 4.00 Weight (Pounds): 180 Weight (Ounces): 0.2 Precautions Precautions/Isolations: Standard Precautions Referral Physician: Riya Reason for Referral: Evaluation/Treatment Medical History Pertinent Medical History: HTN, Hypothroidism Current History EMS secondary to pain, nausea and weakness Reviewed History: Yes Social History Home: Single Level Current Living Status: Alone (with caregivers) Prior Prior Level of Function SCALE: Activities may be completed with or without assistive devices. 8-Yqanzczndz-mnrlpws completes the activity by him/herself with no assistance from a helper. 5-Set-up or Clean-up Assistance-helper sets up or cleans up; patient completes activity. [employer] assists only prior to or following the activity. 4-Supervision or Touching Assistance-helper provides verbal cues and/or touching/steadying and/or contact guard assistance as patient completes activity. Assistance may be provided throughout the activity or intermittently. 3-Partial/Moderate Assistance-helper does LESS THAN HALF the effort. [employer] lifts, holds or supports trunk or limbs, but provides less than half the effort. 2-Substantial/Maximal Assistance-helper does MORE THAN HALF the effort. [employer] lifts or holds trunk or limbs and provides more than half the effort. 9-Wfuekqmqu-igudnv does ALL the effort. Patient does none of the effort to complete the activity. Or, the assistance of 2 or more helpers is required for the patient to complete the activity. If activity was not attempted, code reason: 7-Patient Refused. 9-Not Applicable-not attempted and the patient did not perform the activity before the current illness, exacerbation or injury. 10-Not Attempted due to Environmental Limitations-(lack of equipment, weather restraints, etc.). 88-Not Attempted due to Medical Conditions or Safety Concerns. Bed Mobility: 4 Transfers (B,C,W/C): 4 Gait: 4 Indoor Mobility (Ambulation): Needed Some Help Prior Devices Use: Walker PT Evaluation-Current Subjective Patient agrees to PT. Objective Patient Orientation: Normal For Age Attachments: NG Tube, Gill Catheter, IV ROM/Strength ROM Lower Extremities bilateral LE WFL Strength Lower Extremities 3-/5 grossly bilateral LE all planes Integumentary/Posture Integumentary refer to nursing notes Bladder Incontinence: Gill Cath Posture severely kyphotic/cervical flexion Neuromuscular (Tone, Coordination, Reflexes) diminished coordination due to weakness Sensory Vision: Functional Hearing: Impaired Transfers Lying to Sitting/Side of Bed(Q: 1 Sit to Stand (QC): 1 Chair/Qeh-lc-Iryei Xfer(QC): 1 Gait Mode of Locomotion: Walk Anticipated Mode of Locomotion: Walk Distance: 5 steps Gait Assistive Device: FWW Comments/Gait Description slow, shuffle gait sequence Treatment LSO back brace in place in sit Assessment/Needs Patient will benefit from skilled PT to address functional strength and mobility to improve current LOF. Patient is currently max to dependent assist with all m obility Rehab Potential: Guarded PT Supervisor Customer Records Division Goals Mcfp Goals PT Supervisor [employer] Goals Time Frame: Jul 12, 2022 Roll Left & Right (QC): 3 Sit to Lying (QC): 3 Lying-Sitting on Side/Bed(QC): 3 Sit to Stand (QC): 3 Chair/Bcj-lj-Fnqae Xfer(QC): 3 Toilet Transfer (QC): 3 Walk 10 feet (QC): 3 PT Plan Problem List Problem List: Activity Tolerance, Functional Strength, Safety, Balance, Gait, Transfer, Bed Mobility Treatment/Plan Treatment Plan: Continue Plan of Care Treatment Plan: Bed Mobility, Education, Functional Activity Luis Miguel, Functional Strength, Gait, Safety, Therapeutic Exercise, Transfers Treatment Duration: Jul 12, 2022 Frequency: 6 times per week Estimated Hrs Per Day: .25 hour per day Patient and/or Family Agrees t: Yes Time Time In: 1050 Time Out: 1108 DATE: Jun 24, 2022 Total Billed Treatment Time: 18 Total Billed [facility] WEI HAIRSTON PT Jun 24, 2022 11:31
--- NOTE | 2022-06-24 12:08 | Diagnostic Imaging Report ---
ABDOMEN, FLAT UPRIGHT/DECUB INDICATION: Ileus. COMPARISON: 06/22/2022. TECHNIQUE: Upright and supine AP view of the abdomen. FINDINGS: There remain gas-filled loops of small bowel and colon which are not significantly dilated. No free intraperitoneal air. Enteric tube has tip terminating in the region of the midstomach. Gallstones are again noted. Stable degenerative changes within the lumbar spine and hips. IMPRESSION: Improving but persistent gas-filled small bowel and colon that again favors an ileus. Dictated by: Dictated on workstation # [id number]
[2022-06-24 16:09] VITALS: BP 155/79
[2022-06-24 20:01] VITALS: BP 139/74
[2022-06-24] MEDS: amLODIPine 2.5MG (NORVASC) TAB PO SCH (20:32)
[2022-06-25] VITALS (7 sets, daily range): BP systolic 104–156; BP diastolic 58–88
[2022-06-25] MEDS: NS IV 1000 ML 1,000 ML IV SCH ×2 (05:54→21:38)
[2022-06-25] MEDS: SALINE NASAL SPRAY (OCEAN) 45 ML BTL SCH ×4 (09:24→21:23)
[2022-06-25] MEDS: meTOprolol TARTRATE 50 MG (LOPRESSOR) TAB PO SCH ×2 (09:24→21:22)
[2022-06-25] MEDS: LOSARTAN 25 MG (COZAAR) TAB PO SCH (09:25)
[2022-06-25] MEDS: SIMETHICONE 80 MG (MYLICON) CHEW PO SCH ×4 (09:25→21:22)
[2022-06-25] MEDS: ASPIRIN 81 MG CHEW (CHILDREN'S ASA) PO SCH (09:25)
[2022-06-25] MEDS: GABAPENTIN 100 MG (NEURONTIN) CAP PO SCH ×2 (09:25→21:22)
[2022-06-25] MEDS: PANTOPRAZOLE 40 MG (PROTONIX) TAB PO SCH (09:25)
[2022-06-25] MEDS: METHYLNALTREXONE 12 MG/0.6 ML (RELISTOR) VIAL SQ SCH (09:27)
[2022-06-25] MEDS: LEVOTHYROXINE 25 MCG (LEVOTHROID) TAB PO SCH (09:27)
[2022-06-25] MEDS: ENOXAPARIN 40 MG/0.4 ML (LOVENOX) SYR SC SCH (09:27)
[2022-06-25] MEDS: DICLOFENAC 1% GEL 100 GM (VOLTAREN) TUBE TOP SCH ×4 (09:28→21:36)
--- NOTE | 2022-06-25 12:28 | Occupational Ther Daily Note ---
OT Current Status-Daily Note Subjective Patient sitting in reclined position w/ LES elevated in recliner w/ TLSO in superior position and restricting BUE ROM near axilla. Required Moderate encouragement to stand to adjust TLSO Mental Status/Objective Patient Orientation: Situation ADL-Treatment Therapy Code Descriptions/Definitions Functional [place] Measure: 0=Not Assessed/NA 4=Minimal Assistance 1=Total Assistance 5=Supervision or Setup 2=Maximal Assistance 6=Modified [place] 3=Moderate Assistance 7=Complete IndependenceSCALE: Activities may be completed with or without assistive devices. 7-Jnjiibcham-wfzycke completes the activity by him/herself with no assistance from a helper. 5-Set-up or Clean-up Assistance-helper sets up or cleans up; patient completes activity. [place] assists only prior to or following the activity. 4-Supervision or Touching Assistance-helper provides verbal cues and/or touching/steadying and/or contact guard assistance as patient completes activity. Assistance may be provided throughout the activity or intermittently. 3-Partial/Moderate Assistance-helper does LESS THAN HALF the effort. [place] lifts, holds or supports trunk or limbs, but provides less than half the effort. 2-Substantial/Maximal Assistance-helper does MORE THAN HALF the effort. [place] lifts or holds trunk or limbs and provides more than half the effort. 8-Spcpxhtzq-ftylgx does ALL the effort. Patient does none of the effort to complete the activity. Or, the assistance of 2 or more helpers is required for the patient to complete the activity. If activity was not attempted, code reason: 7-Patient Refused. 9-Not Applicable-not attempted and the patient did not perform the activity before the current illness, exacerbation or injury. 10-Not Attempted due to Environmental Limitations-(lack of equipment, weather restraints, etc.). 88-Not Attempted due to Medical Conditions or Safety Concerns. Eating (QC): 7 Oral Hygiene (QC): 7 Shower/Bathe Self (QC): 7 Upper Body Dressing (QC): 2 Lower Body Dressing (QC): 1 On/Off Footwear: 1 Toileting Hygiene (QC): 1 Toilet Transfer (QC): 1 During transfer sequence patient required several repeat instructions and impuls ively retrogrades with sit/stand transfer requiring additional person for transfer assistance. TLSO adjusted while patient stands and holds FWW one hand assist and self positioned individual breast tissue to position TLSO appropriately., While standing patient requires only one person assist, completion of functional, static and dynamic tasks performed with OT. Patient transitioned from stand to sitting position Moderate assit. Pillows positioned for comfort in recliner. Patient became tearful of situation and shared concerns of radiology reports. OT offerred comfort and patient found elda in sharing memories of her cocker spaniel dog Education OT Patient Education: Correct positioning, Energy conservation, Exercise program, Modified ADL techniques, Progress toward Goal/Update tx plan, Purpose of tx/functional activities, Reviewed precautions, Rehab process, Safety issues, Transfer techniques, Use of adapted equipment Teaching Recipient: Patient Teaching Methods: Demonstration, Discussion Response to Teaching: Reinforcement Needed OT Shelter Goals Shelter Goals Eating (QC): 6 Oral Hygiene (QC): 6 Toileting Hygiene (QC): 4 Shower/Bathe Self (QC): 4 Upper Body Dressing (QC): 4 Lower Body Dressing (QC): 4 On/Off Footwear (QC): 4 1=Demonstrate adherence to instructed precautions during ADL tasks. 2=Patient will verbalize/demonstrate understanding of assistive dev ices/modifications for ADL. 3=Patient will improve strength/tolerance for activity to enable patient to perform ADL's. OT Education/Plan Discharge Recommendations Plan/Recommendations: Continue POC Treatment Plan/Plan of Care Patient would benefit from OT for education, treatment and training to promote independence in ADL's, mobility, safety and/or upper extremity function for ADL's. Plan of Care: ADL Retraining, Caregiver Training, Functional Mobility, Group Exercise/Act as Ind, Orthotic Fitting/Training, UE Funct Exercise/Act Treatment Duration: Jun 28, 2022 Frequency: 3 times per week (3-5 times per week) Estimated Hrs Per Day: .25 hour per day Agreement: Yes Rehab Potential: Guarded Patient remains in recliner w/ feet lowered, bed tray in reach and visitor at chair side.,. all needs met Time Start Time: 10:30 Stop Time: 10:53 DATE: Jun 25, 2022 Total Time Billed (hr/min): 23 Billed Treatment Time FA 2 23 min ZAHRAA GALLARDO OT Jun 25, 2022 12:28
--- NOTE | 2022-06-25 12:43 | Physical Therapy Daily Note ---
PT Daily Note-Current Subjective Patient lying supine in bed upon PT arrival, agreeable to treatment. Patient rates pain at 0/10 at rest. Pain Section J - Health Conditions 1. Rarely or not at all 2. Occasionally 3. Frequently 4. Almost constantly 8. Unable to answer Pain Effect on Sleep: 1 Pain Interference with Therapy: 3 Pain Interference w/Day-to-Day: 3 Mental Status Patient Orientation: Person Attachments: IV Transfers SCALE: Activities may be completed with or without assistive devices. 2-Jlpjjbyxml-ydoefsb completes the activity by him/herself with no assistance from a helper. 5-Set-up or Clean-up Assistance-helper sets up or cleans up; patient completes activity. [place] assists only prior to or following the activity. 4-Supervision or Touching Assistance-helper provides verbal cues and/or touching/steadying and/or contact guard assistance as patient completes activity. Assistance may be provided throughout the activity or intermittently. 3-Partial/Moderate Assistance-helper does LESS THAN HALF the effort. [place] lifts, holds or supports trunk or limbs, but provides less than half the effort. 2-Substantial/Maximal Assistance-helper does MORE THAN HALF the effort. [place] lifts or holds trunk or limbs and provides more than half the effort. 8-Rnjbquwqe-szbxsg does ALL the effort. Patient does none of the effort to complete the activity. Or, the assistance of 2 or more helpers is required for the patient to complete the activity. If activity was not attempted, code reason: 7-Patient Refused. 9-Not Applicable-not attempted and the patient did not perform the activity before the current illness, exacerbation or injury. 10-Not Attempted due to Environmental Limitations-(lack of equipment, weather restraints, etc.). 88-Not Attempted due to Medical Conditions or Safety Concerns. Roll Left & Right (QC): 2 Sit to Lying (QC): 2 Lying to Sitting/Side of Bed(Q: 2 Sit to Stand (QC): 2 Chair/Hit-ux-Flhju Xfer(QC): 2 Weight Bearing Right Lower Extremity: Right Full Weight Bearing Left Lower Extremity: Left Full Weight Bearing Gait Training Does the Patient Walk?: Yes Distance: 5 feet Walk 10 feet (QC): 2 Gait Assistive Device: FWW Assessment Current Status: Poor Progress Patient tolerated treatment well. Incontinent of BM upon PT arrival. FELLER HAND contacted and PT assisted with bed mobility while FELLER HAND performed philippe-care. Patient requires max A for all bed mobility and transfers. Patient sat EOB for TLSO donning, however she was unable to maintain sitting balance or elevate UEs for TLSO to pass through appropriately. Patient ambulates 5 feet to the chair with FWW, with max A and verbal cues. Patient in chair post treatment with all needs met, nursing notified, call light in reach. PT [employer] Civil Engineer Goals Senior Care Goals PT [employer] Civil Engineer Goals Time Frame: Jul 12, 2022 Roll Left & Right (QC): 3 Sit to Lying (QC): 3 Lying-Sitting on Side/Bed(QC): 3 Sit to Stand (QC): 3 Chair/Tnf-ty-Jthuu Xfer(QC): 3 Toilet Transfer (QC): 3 Walk 10 feet (QC): 3 PT Plan Treatment/Plan Treatment Plan: Continue Plan of Care Treatment Plan: Bed Mobility, Education, Functional Activity Luis Miguel, Functional Strength, Gait, Safety, Therapeutic Exercise, Transfers Treatment Duration: Jul 12, 2022 Frequency: 6 times per week Estimated Hrs Per Day: .25 hour per day Patient and/or Family Agrees t: Yes Safety Risks/Education Patient Education: Gait Training, Transfer Techniques Teaching Recipient: Patient, Family Teaching Methods: Demonstration, Discussion Response to Teaching: Reinforcement Needed Time Time In: 950 Time Out: 1015 DATE: Jun 25, 2022 Total Billed Treatment Time: 25 Total Billed Treatment Visit, FA (2) VISH LOMELI PT Jun 25, 2022 12:43
--- NOTE | 2022-06-25 12:45 | Progress Note ---
Subjective Date Seen by a Provider: Jun 25, 2022 Time Seen by a Provider: 08:40 Subjective/Events-last exam Fwup L1 compression fracture, multilevel degenerative disc disease, ileus, HTN. Still with NG tube in place. Thinks is passing gas and even small bowel movement. Sitting up in bed and drinking clear liquids. C/O back pain but not as severe. Objective Exam Vital Signs Date Time Temp Pulse Resp B/P (MAP) Pulse Ox O2 Delivery O2 Flow Rate FiO2 06/25/22 11:15 36.4 97 18 139/80 (99) 96 Room Air 06/25/22 08:00 96 Room Air 06/25/22 07:42 36.2 99 18 148/82 (104) 96 Room Air 06/25/22 04:15 37.1 90 14 156/74 (101) 94 Room Air 06/25/22 00:32 36.9 74 18 118/64 (82) 96 Room Air 06/24/22 20:30 Room Air 06/24/22 20:01 37.1 89 16 139/74 (95) 93 Room Air 06/24/22 16:09 36.7 72 16 155/79 (104) 96 Room Air I & O 06/25/22 07:00 Intake Total 1620 ml Output Total 2100 ml Balance -480 ml Capillary Refill : Less Than 3 Seconds General Appearance: No Apparent Distress Neck: Supple Respiratory: Lungs Clear Cardiovascular: Regular Rate, Rhythm Gastrointestinal: normal bowel sounds, non tender, soft, other (NG tube in place) Extremity: Non Tender, No Calf Tenderness, No Pedal Edema Neurologic/Psychiatric: Alert, Oriented x3 Assessment/Plan Assessment/Plan Assess & Plan/Chief Complaint 1. L1 Compression Fracture-on fentanyl patch 2. Ileus--NG tube in place, if passing BMS will DC NG tube 3. Multilevel Degenerative Disc Disease--pain control, PT/OT started 4. Hypertension--back on home meds PIA RICH DO Jun 25, 2022 12:45
[2022-06-25] MEDS ORDERED: DOCUSATE SODIUM 100 MG (COLACE) CAP PO NR (13:15)
[2022-06-25] MEDS: amLODIPine 2.5MG (NORVASC) TAB PO SCH (21:21)
[2022-06-25] MEDS: HYDROcodone/APAP 5 MG/325 MG (LORTAB) TAB PO PRN (21:22)
[2022-06-25] MEDS: polyethylene glycoL POWDER 17 GM (MIRALAX) PACK PO SCH (21:22)
[2022-06-25] MEDS: DOCUSATE SODIUM 100 MG (COLACE) CAP PO SCH (21:22)
[2022-06-26 04:47] VITALS: BP 114/61
[2022-06-26 08:00] VITALS: BP 135/69
--- NOTE | 2022-06-26 09:13 | Progress Note ---
Subjective Subjective Date Seen by Provider: Jun 26, 2022 Time Seen by Provider: 09:10 Pt reports that she is feeling like the pain in her back has improved. She reports that her stomach is full, but does feel better. Review of Systems General: No Chills; Fatigue, Malaise HEENT: No Head Aches Pulmonary: No Dyspnea, No Cough Cardiovascular: No: Chest Pain, Palpitations Gastrointestinal: Abdominal Pain, Other (dyspepsie); No: Nausea Musculoskeletal: back pain Neurological: Weakness; No: Confusion All Other Systems Reviewed All Other Systems Reviewed: Yes Objective Exam Vital Signs Vital Signs Date Time Temp Pulse Resp B/P (MAP) Pulse Ox O2 Delivery O2 Flow Rate FiO2 06/26/22 08:00 36.7 93 16 135/69 (91) 95 Room Air 06/26/22 04:47 36.5 80 20 114/61 (78) 93 Room Air 06/25/22 23:15 36.4 76 18 104/58 (73) 94 Room Air 06/25/22 20:28 37.1 94 18 136/70 (92) 96 Room Air 06/25/22 19:45 Room Air 06/25/22 16:20 36.3 87 20 135/88 (104) 97 Room Air 06/25/22 11:15 36.4 97 18 139/80 (99) 96 Room Air I & O 06/26/22 07:00 Intake Total 2740 ml Output Total 2275 ml Balance 465 ml General Appearance: No Apparent Distress HEENT: PERRL/EOMI Neck: Supple Respiratory: Lungs Clear Cardiovascular: Regular Rate, Rhythm Gastrointestinal: Other (high pitched bowel sounds, bloating, tympanitic) Rectal: Deferred Back: Vertebral Tenderness (lumbar spine), Other (kyphosis) Extremity: Non Tender, No Calf Tenderness, No Pedal Edema Neurologic/Psychiatric: Alert, Oriented x3 Skin: Normal Color, Warm/Dry Assessment/Plan Assessment/Plan Admission Dx Osteoporotic fracture of Lumbar spine Lumbar spine pain Uncontrolled pain Obstipation Abdominal bloating Chronic Hypertension Chronic Hypothyroidism Hyponatremia - acute Assessment and Plan Osteoporotic fracture of Lumbar spine Lumbar spine pain Uncontrolled pain Obstipation Abdominal bloating Chronic Hypertension Chronic Hypothyroidism Hyponatremia - acute Mild epistaxis Osteoporotic fracture of Lumbar spine with Uncontrolled pain of Lumbar spine - hold fosamax at this time - prn pain medication IV and oral with addition of fentanyl patch - DOSE increased to 25MCG fentanyl patch - Lumbar spine Fracture of L1, pt has a small piece slightly retropulsed into the canal - -the family and patient are NOT interested in surgery. Brace placed by therapy staff - MRI of lumbar spine as follows: - IMPRESSION: Acute compression fracture of L1 recent height loss now 50% height loss. Associated bony retropulsion causing mild to moderate spinal canal stenosis at T12-L1. Acute compression deformity along the left lateral aspect of T11 with minimal height loss. Moderate multilevel degenerative changes with moderate multilevel spinal canal stenosis described level by level above. Obstipation with Abdominal bloating - checked repeat KUB - order for fleet enema due to signs of constipation on the lumbar CT scan from Thursday with progressive symptoms. - clear liquid diet for now. - NG tube placed monitor symptoms. Chronic Hypertension - restarted amlodipine and losartan, restarted metoprolol Chronic Hypothyroidism - resumed levothyroxine. Hyponatremia - acute - improved on fluids - decreased fluids from 100mL/hr to 75mL/hr. Nose bleed - nasal saline DISCHARGE PLANNING - discussed with pt and DTR - Yael will need to go to SNF for acute rehabilitation post hospitalization at [facility] this week Admission Dx Osteoporotic fracture of Lumbar spine Lumbar spine pain Uncontrolled pain Obstipation Abdominal bloating Chronic Hypertension Chronic Hypothyroidism Hyponatremia - acute Clinical Quality Measures Admission Status Admission Dx Osteoporotic fracture of Lumbar spine Lumbar spine pain Uncontrolled pain Obstipation Abdominal bloating Chronic Hypertension Chronic Hypothyroidism Hyponatremia - acute JOSE RAUL VALDERRAMA MD Jun 26, 2022 09:13
[2022-06-26] MEDS: HYDROcodone/APAP 5 MG/325 MG (LORTAB) TAB PO PRN ×3 (09:24→20:14)
[2022-06-26] MEDS: SIMETHICONE 80 MG (MYLICON) CHEW PO SCH ×4 (09:26→20:14)
[2022-06-26] MEDS: GABAPENTIN 100 MG (NEURONTIN) CAP PO SCH ×2 (09:27→20:14)
[2022-06-26] MEDS: DOCUSATE SODIUM 100 MG (COLACE) CAP PO SCH ×2 (09:27→20:14)
[2022-06-26] MEDS: LEVOTHYROXINE 25 MCG (LEVOTHROID) TAB PO SCH (09:27)
[2022-06-26] MEDS: LOSARTAN 25 MG (COZAAR) TAB PO SCH (09:27)
[2022-06-26] MEDS: meTOprolol TARTRATE 50 MG (LOPRESSOR) TAB PO SCH ×2 (09:27→20:14)
[2022-06-26] MEDS: PANTOPRAZOLE 40 MG (PROTONIX) TAB PO SCH (09:27)
[2022-06-26] MEDS: ASPIRIN 81 MG CHEW (CHILDREN'S ASA) PO SCH (09:27)
[2022-06-26] MEDS: DICLOFENAC 1% GEL 100 GM (VOLTAREN) TUBE TOP SCH ×4 (09:29→20:13)
[2022-06-26] MEDS: SALINE NASAL SPRAY (OCEAN) 45 ML BTL SCH ×4 (09:29→20:13)
[2022-06-26] MEDS ORDERED: FENTANYL PATCH REMOVAL TP SCH (09:29)
[2022-06-26] MEDS ORDERED: fentaNYL PATCH 25 MCG (DURAGESIC) TD SCH (09:30)
[2022-06-26] MEDS: ENOXAPARIN 40 MG/0.4 ML (LOVENOX) SYR SC SCH (09:54)
--- NOTE | 2022-06-26 10:56 | Physical Therapy Daily Note ---
PT Daily Note-Current Subjective Patient agrees to PT. Pain Section J - Health Conditions 1. Rarely or not at all 2. Occasionally 3. Frequently 4. Almost constantly 8. Unable to answer Pain Effect on Sleep: 1 Pain Interference with Therapy: 3 Pain Interference w/Day-to-Day: 3 Mental Status Patient Orientation: Normal For Age Attachments: Gill Catheter, IV Transfers SCALE: Activities may be completed with or without assistive devices. 7-Xzwnfbnloj-cvafkah completes the activity by him/herself with no assistance from a helper. 5-Set-up or Clean-up Assistance-helper sets up or cleans up; patient completes activity. [place] assists only prior to or following the activity. 4-Supervision or Touching Assistance-helper provides verbal cues and/or touching/steadying and/or contact guard assistance as patient completes activity. Assistance may be provided throughout the activity or intermittently. 3-Partial/Moderate Assistance-helper does LESS THAN HALF the effort. [place] lifts, holds or supports trunk or limbs, but provides less than half the effort. 2-Substantial/Maximal Assistance-helper does MORE THAN HALF the effort. [place] lifts or holds trunk or limbs and provides more than half the effort. 2-Mvpuktjtn-wdpmeo does ALL the effort. Patient does none of the effort to complete the activity. Or, the assistance of 2 or more helpers is required for the patient to complete the activity. If activity was not attempted, code reason: 7-Patient Refused. 9-Not Applicable-not attempted and the patient did not perform the activity before the current illness, exacerbation or injury. 10-Not Attempted due to Environmental Limitations-(lack of equipment, weather restraints, etc.). 88-Not Attempted due to Medical Conditions or Safety Concerns. Lying to Sitting/Side of Bed(Q: 3 Sit to Stand (QC): 2 Chair/Vor-ww-Wwyyw Xfer(QC): 3 Toilet Transfer (QC): 2 Weight Bearing Right Lower Extremity: Right Full Weight Bearing Left Lower Extremity: Left Full Weight Bearing Gait Training Distance: 15' x 2 Walk 10 feet (QC): 3 Gait Assistive Device: FWW unsteady with noted retropulsion with PT correct (mod assist) Assessment Patient incontinent BM requiring dependent assist by OT to cleanse as PT address balance and mobility. Patient requires dependent assist to don TLSO. Patient sitting up in recliner with needs met. PT Nurse Tech Goals Nurse Tech Goals PT [facility]sp Goals Time Frame: Jul 12, 2022 Roll Left & Right (QC): 3 Sit to Lying (QC): 3 Lying-Sitting on Side/Bed(QC): 3 Sit to Stand (QC): 3 Chair/Etq-qp-Iqrnd Xfer(QC): 3 Toilet Transfer (QC): 3 Walk 10 feet (QC): 3 PT Plan Treatment/Plan Treatment Plan: Continue Plan of Care Treatment Plan: Bed Mobility, Education, Functional Activity Luis Miguel, Functional Strength, Gait, Safety, Therapeutic Exercise, Transfers Treatment Duration: Jul 12, 2022 Frequency: 6 times per week Estimated Hrs Per Day: .25 hour per day Patient and/or Family Agrees t: Yes Time Time In: 925 Time Out: 948 DATE: Jun 26, 2022 Total Billed Treatment Time: 23 Total Billed Treatment 1 visit FA x 2 23 min WEI HAIRSTON PT Jun 26, 2022 10:56
--- NOTE | 2022-06-26 11:05 | Occupational Ther Daily Note ---
OT Current Status-Daily Note Subjective Reclined in bed, agreeable to OT following medication administration Mental Status/Objective Patient Orientation: Situation Attachments: Gill Catheter, IV TLSO for transfers and OOB activity ADL-Treatment Therapy Code Descriptions/Definitions Functional [place] Measure: 0=Not Assessed/NA 4=Minimal Assistance 1=Total Assistance 5=Supervision or Setup 2=Maximal Assistance 6=Modified [place] 3=Moderate Assistance 7=Complete IndependenceSCALE: Activities may be completed with or without assistive devices. 2-Fuxustfrbg-yphwffs completes the activity by him/herself with no assistance from a helper. 5-Set-up or Clean-up Assistance-helper sets up or cleans up; patient completes activity. [place] assists only prior to or following the activity. 4-Supervision or Touching Assistance-helper provides verbal cues and/or touching/steadying and/or contact guard assistance as patient completes activ ity. Assistance may be provided throughout the activity or intermittently. 3-Partial/Moderate Assistance-helper does LESS THAN HALF the effort. [place] lifts, holds or supports trunk or limbs, but provides less than half the effort. 2-Substantial/Maximal Assistance-helper does MORE THAN HALF the effort. [place] lifts or holds trunk or limbs and provides more than half the effort. 1-Looyjqexz-jgbhuv does ALL the effort. Patient does none of the effort to complete the activity. Or, the assistance of 2 or more helpers is required for the patient to complete the activity. If activity was not attempted, code reason: 7-Patient Refused. 9-Not Applicable-not attempted and the patient did not perform the activity before the current illness, exacerbation or injury. 10-Not Attempted due to Environmental Limitations-(lack of equipment, weather restraints, etc.). 88-Not Attempted due to Medical Conditions or Safety Concerns. Eating (QC): 6 Oral Hygiene (QC): 5 Shower/Bathe Self (QC): 7 Upper Body Dressing (QC): 3 Lower Body Dressing (QC): 2 On/Off Footwear: 2 Toileting Hygiene (QC): 2 (BM incont.) Toilet Transfer (QC): 2 Education OT Patient Education: Correct positioning, Exercise program, Modified ADL techniques, Progress toward Goal/Update tx plan, Purpose of tx/functional activities, Reviewed precautions, Rehab process, Safety issues, Transfer techniques, Use of adapted equipment Teaching Recipient: Patient Teaching Methods: Demonstration, Discussion Response to Teaching: Reinforcement Needed OT Intermediate Goals Intermediate Goals Eating (QC): 6 Oral Hygiene (QC): 6 Toileting Hygiene (QC): 4 Shower/Bathe Self (QC): 4 Upper Body Dressing (QC): 4 Lower Body Dressing (QC): 4 On/Off Footwear (QC): 4 1=Demonstrate adherence to instructed precautions during ADL tasks. 2=Patient will verbalize/demonstrate understanding of assistive devices/modifications for ADL. 3=Patient will improve strength/tolerance for activity to enable patient to perform ADL's. OT Education/Plan Problem List/Assessment Assessment: Decreased Activ Tolerance, Decreased Safety Aware, Decreased UE Strength, Impaired Bed Mobility, Impaired Funct Balance, Impaired Self-Care Skills Patient reports she walk more than this at home and is more active, reports her pace is faster than currently performing Discharge Recommendations Plan/Recommendations: Continue POC Treatment Plan/Plan of Care Patient would benefit from OT for education, treatment and training to promote independence in ADL's, mobility, safety and/or upper extremity function for ADL's. Plan of Care: ADL Retraining, Caregiver Training, Functional Mobility, Group Exercise/Act as Ind, Orthotic Fitting/Training, UE Funct Exercise/Act Treatment Duration: Jun 28, 2022 Frequency: 3 times per week (3-5 times per week) Estimated Hrs Per Day: .25 hour per day Agreement: Yes Rehab Potential: Guarded Up in recliner w/ all needs met Time Start Time: 09:25 Stop Time: 09:48 DATE: Jun 26, 2022 Total Time Billed (hr/min): 23 Billed Treatment Time ADL 2 23 min ZAHRAA GALLARDO OT Jun 26, 2022 11:05
[2022-06-26] MEDS: NS IV 1000 ML 1,000 ML IV SCH (11:43)
[2022-06-26 11:55] VITALS: BP 109/55
[2022-06-26 15:02] VITALS: BP 109/60
[2022-06-26 19:21] VITALS: BP 118/81
[2022-06-26] MEDS: polyethylene glycoL POWDER 17 GM (MIRALAX) PACK PO SCH (20:14)
[2022-06-26] MEDS: amLODIPine 2.5MG (NORVASC) TAB PO SCH (20:14)
[2022-06-27 00:07] VITALS: BP 119/68
[2022-06-27] MEDS: NS IV 1000 ML 1,000 ML IV SCH ×2 (01:16→13:45)
[2022-06-27 03:52] VITALS: BP 124/73
[2022-06-27 07:57] VITALS: BP 132/75
[2022-06-27] MEDS: PANTOPRAZOLE 40 MG (PROTONIX) TAB PO SCH (09:56)
[2022-06-27] MEDS: GABAPENTIN 100 MG (NEURONTIN) CAP PO SCH (09:56)
[2022-06-27] MEDS: LEVOTHYROXINE 25 MCG (LEVOTHROID) TAB PO SCH (09:56)
[2022-06-27] MEDS: DOCUSATE SODIUM 100 MG (COLACE) CAP PO SCH (09:56)
[2022-06-27] MEDS: LOSARTAN 25 MG (COZAAR) TAB PO SCH (09:56)
[2022-06-27] MEDS: ASPIRIN 81 MG CHEW (CHILDREN'S ASA) PO SCH (09:56)
[2022-06-27] MEDS: SIMETHICONE 80 MG (MYLICON) CHEW PO SCH ×2 (09:57→14:34)
[2022-06-27] MEDS: meTOprolol TARTRATE 50 MG (LOPRESSOR) TAB PO SCH (09:58)
[2022-06-27] MEDS: SALINE NASAL SPRAY (OCEAN) 45 ML BTL SCH ×2 (09:59→13:44)
[2022-06-27] MEDS: METHYLNALTREXONE 12 MG/0.6 ML (RELISTOR) VIAL SQ SCH (10:00)
[2022-06-27] MEDS: DICLOFENAC 1% GEL 100 GM (VOLTAREN) TUBE TOP SCH ×2 (10:01→13:45)
[2022-06-27] MEDS: ENOXAPARIN 40 MG/0.4 ML (LOVENOX) SYR SC SCH (10:02)
[2022-06-27] MEDS: HYDROcodone/APAP 5 MG/325 MG (LORTAB) TAB PO PRN (10:03)
--- NOTE | 2022-06-27 10:22 | Physical Therapy Daily Note ---
PT Daily Note-Current Subjective Patient agrees to PT. Pain Section J - Health Conditions 1. Rarely or not at all 2. Occasionally 3. Frequently 4. Almost constantly 8. Unable to answer Pain Effect on Sleep: 1 Pain Interference with Therapy: 1 Pain Interference w/Day-to-Day: 1 Mental Status Patient Orientation: Normal For Age Attachments: Gill Catheter, IV Transfers SCALE: Activities may be completed with or without assistive devices. 7-Dqpvegmdvh-knozktg completes the activity by him/herself with no assistance from a helper. 5-Set-up or Clean-up Assistance-helper sets up or cleans up; patient completes activity. [place] assists only prior to or following the activity. 4-Supervision or Touching Assistance-helper provides verbal cues and/or touching/steadying and/or contact guard assistance as patient completes activity. Assistance may be provided throughout the activity or intermittently. 3-Partial/Moderate Assistance-helper does LESS THAN HALF the effort. [place] lifts, holds or supports trunk or limbs, but provides less than half the effort. 2-Substantial/Maximal Assistance-helper does MORE THAN HALF the effort. [place] lifts or holds trunk or limbs and provides more than half the effort. 0-Bkyjetyzm-jnkkus does ALL the effort. Patient does none of the effort to complete the activity. Or, the assistance of 2 or more helpers is required for the patient to complete the activity. If activity was not attempted, code reason: 7-Patient Refused. 9-Not Applicable-not attempted and the patient did not perform the activity before the current illness, exacerbation or injury. 10-Not Attempted due to Environmental Limitations-(lack of equipment, weather restraints, etc.). 88-Not Attempted due to Medical Conditions or Safety Concerns. Lying to Sitting/Side of Bed(Q: 4 Sit to Stand (QC): 3 Chair/Ryk-zc-Fzfrk Xfer(QC): 3 Weight Bearing Right Lower Extremity: Right Full Weight Bearing Left Lower Extremity: Left Full Weight Bearing Gait Training Distance: 60' Walk 10 feet (QC): 3 Walk 50 ft with 2 Turns(QC): 3 Gait Assistive Device: FWW very, slow, slightly unsteady gait sequence Assessment Patient fatigued quickly with minimal activity. Patient is up in recliner with needs met. PT Mcfp Goals Turning Machine Set Up Operator Goals PT Turning Machine Set Up Operator Goals Time Frame: Jul 12, 2022 Roll Left & Right (QC): 3 Sit to Lying (QC): 3 Lying-Sitting on Side/Bed(QC): 3 Sit to Stand (QC): 3 Chair/Fxm-xy-Iiktw Xfer(QC): 3 Toilet Transfer (QC): 3 Walk 10 feet (QC): 3 PT Plan Treatment/Plan Treatment Plan: Continue Plan of Care Treatment Plan: Bed Mobility, Education, Functional Activity Luis Miguel, Functional Strength, Gait, Safety, Therapeutic Exercise, Transfers Treatment Duration: Jul 12, 2022 Frequency: 6 times per week Estimated Hrs Per Day: .25 hour per day Patient and/or Family Agrees t: Yes Time Time In: 932 Time Out: 950 DATE: Jun 27, 2022 Total Billed Treatment Time: 18 Total Billed Treatment 1 visit GT 18 min WEI HAIRSTON PT Jun 27, 2022 10:22
--- NOTE | 2022-06-27 10:39 | Occupational Ther Daily Note ---
OT Current Status-Daily Note Subjective In bed and agreeable to OT Mental Status/Objective Patient Orientation: Situation TLSO ADL-Treatment Therapy Code Descriptions/Definitions Functional [place] Measure: 0=Not Assessed/NA 4=Minimal Assistance 1=Total Assistance 5=Supervision or Setup 2=Maximal Assistance 6=Modified [place] 3=Moderate Assistance 7=Complete IndependenceSCALE: Activities may be completed with or without assistive devices. 4-Wqaxjxzxct-ikwscmt completes the activity by him/herself with no assistance from a helper. 5-Set-up or Clean-up Assistance-helper sets up or cleans up; patient completes activity. [place] assists only prior to or following the activity. 4-Supervision or Touching Assistance-helper provides verbal cues and/or touching/steadying and/or contact guard assistance as patient completes acti vity. Assistance may be provided throughout the activity or intermittently. 3-Partial/Moderate Assistance-helper does LESS THAN HALF the effort. [place] lifts, holds or supports trunk or limbs, but provides less than half the effort. 2-Substantial/Maximal Assistance-helper does MORE THAN HALF the effort. [place] lifts or holds trunk or limbs and provides more than half the effort. 3-Wzdkuptob-ermwde does ALL the effort. Patient does none of the effort to complete the activity. Or, the assistance of 2 or more helpers is required for the patient to complete the activity. If activity was not attempted, code reason: 7-Patient Refused. 9-Not Applicable-not attempted and the patient did not perform the activity before the current illness, exacerbation or injury. 10-Not Attempted due to Environmental Limitations-(lack of equipment, weather restraints, etc.). 88-Not Attempted due to Medical Conditions or Safety Concerns. Upper Body Dressing (QC): 3 Lower Body Dressing (QC): 4 On/Off Footwear: 4 Toileting Hygiene (QC): 3 Toilet Transfer (QC): 3 Other Treatment Improved standing tolerance Education OT Patient Education: Exercise program, Modified ADL techniques, Reviewed precautions, Rehab process, Safety issues, Transfer techniques Teaching Recipient: Patient Teaching Methods: Demonstration Response to Teaching: Return Demonstration OT Molding Machine Setter Goals Molding Machine Setter Goals Eating (QC): 6 Oral Hygiene (QC): 6 Toileting Hygiene (QC): 4 Shower/Bathe Self (QC): 4 Upper Body Dressing (QC): 4 Lower Body Dressing (QC): 4 On/Off Footwear (QC): 4 1=Demonstrate adherence to instructed precautions during ADL tasks. 2=Patient will verbalize/demonstrate understanding of assistive devices/modifications for ADL. 3=Patient will improve strength/tolerance for activity to enable patient to perform ADL's. OT Education/Plan Problem List/Assessment Assessment: Decreased Activ Tolerance, Decreased UE Strength, Impaired Self- Care Skills Patient reports she walk more than this at home and is more active, reports her pace is faster than currently performing Discharge Recommendations Plan/Recommendations: Continue POC Treatment Plan/Plan of Care Patient would benefit from OT for education, treatment and training to promote independence in ADL's, mobility, safety and/or upper extremity function for ADL's. Plan of Care: ADL Retraining, Caregiver Training, Functional Mobility, Group Exercise/Act as Ind, Orthotic Fitting/Training, UE Funct Exercise/Act Treatment Duration: Jun 28, 2022 Frequency: 3 times per week (3-5 times per week) Estimated Hrs Per Day: .25 hour per day Agreement: Yes Rehab Potential: Guarded Time Start Time: 09:32 Stop Time: 09:51 DATE: Jun 27, 2022 Total Time Billed (hr/min): 19 Billed Treatment Time ADL 1 19 min ZAHRAA GALLARDO OT Jun 27, 2022 10:39
--- NOTE | 2022-06-27 11:02 | Discharge Summary ---
Diagnosis/Chief Complaint Date of Admission Jun 21, 2022 at 16:44 Date of Discharge 06/27/22 Discharge Date: Jun 27, 2022 Discharge Time: 12:00 Admission Diagnosis Admission Diagnosis Osteoporotic fracture of Lumbar spine Lumbar spine pain Uncontrolled pain Obstipation Abdominal bloating Chronic Hypertension Chronic Hypothyroidism Hyponatremia - acute Mild epistaxis Discharge Diagnosis Osteoporotic fracture of Lumbar spine Lumbar spine pain Uncontrolled pain Obstipation Abdominal bloating Chronic Hypertension Chronic Hypothyroidism Hyponatremia - acute Mild epistaxis Reason Hospital Visit Pt is an 81 y/o female who is known to me from clinic. She presented to the hospital after having uncontrolled back pain and being unable to be managed at home. The pain started on Thursday of last week when the pt fell while turning from her refrigerator with a bowl in her hands, she scooted to a phone (despite having a medicalert button on her person) and called her worker who then called the pt's family who eventually called 911. The pt was evaluated in the ER - found to have a possible fracture of L1, and sent home with pain medication. She reports the pain has not been well controlled, she has become nauseated, has had bloatin g, and has been "drinking Peptobismol" to control her symptoms. Discharge Summary Discharge Physical Examination Allergies: Coded Allergies: No Known Drug Allergies (Unverified , 06/16/22) Vitals & I&Os Vital Signs Date Time Temp Pulse Resp B/P (MAP) Pulse Ox O2 Delivery O2 Flow Rate FiO2 06/27/22 08:00 Room Air 06/27/22 07:57 36.4 96 18 132/75 (94) 96 General Appearance: Alert, Oriented X3, Cooperative HEENT: Atraumatic, Mucous Memb Moist/[place] Respiratory: Clear to Auscultation, Normal Air Movement Cardiovascular: Other (irregularly irregular - rate controlled) Abdominal: Normal Bowel Sounds, Soft Extremities: No Clubbing, No Cyanosis Skin: No Breakdown Neuro: Normal Speech Psych/Mental Status: Mental Status NL, Mood NL Hospital Course Was the Problem List Reviewed?: Yes Osteoporotic fracture of Lumbar spine Lumbar spine pain Uncontrolled pain Obstipation Abdominal bloating Chronic Hypertension Chronic Hypothyroidism Hyponatremia - acute Mild epistaxis Osteoporotic fracture of Lumbar spine with Uncontrolled pain of Lumbar spine - hold fosamax at this time - prn pain medication IV and oral with addition of fentanyl patch - DOSE NOW AT 25MCG - Lumbar spine Fracture of L1, pt has a small piece slightly retropulsed into the canal - -the family and patient are NOT interested in surgery. Brace placed by therapy staff - MRI of lumbar spine as follows: - IMPRESSION: Acute compression fracture of L1 recent height loss now 50% height loss. A ssociated bony retropulsion causing mild tomoderate spinal canal stenosis at T12-L1. Acute compression deformity along the left lateral aspect of T11 with minimal height loss. Moderate multilevel degenerative changes with moderate multilevel spinal canal s tenosis described level by level above. Obstipation with Abdominal bloating - checked repeat KUB - order for fleet enema due to signs of constipation on the lumbar CT scan from Thursday with progressive symptoms. - NG tube was placed, was showing improving symptoms - now removed pt eating soft diet, doing well monitor symptoms. Chronic Hypertension - restarted amlodipine and losartan, restarted metoprolol Chronic Hypothyroidism - resumed levothyroxine. Hyponatremia - acute - improved on fluids Nose bleed - nasal saline DISCHARGE PLANNING - discussed with pt and DTR - Yael will need to go to SNF for acute rehabilitation post hospitalization at [facility] - DC TODAY PER PT REQUEST [facility] TO STAY IN PLACE DUE TO DIFFICULTY GETTING UP TO URINATE - WILL PLAN FOR DC OF [facility] IN 1 WEEK FROM DC Discharge Condition at discharge improved Instructions to patient/family Please see electronic discharge instructions given to patient. Discharge Medications Reviewed and agree with Discharge Medication list on patient's Discharge Instruction sheet JOSE RAUL VALDERRAMA MD Jun 27, 2022 11:02
[2022-06-27] MEDS ORDERED: FENT1PAT8 TD (11:13)
[2022-06-27] MEDS ORDERED: GABA-486 PO (11:13)
[2022-06-27] MEDS ORDERED: ACHD5005 PO (11:13)
[2022-06-27] MEDS ORDERED: SIME80TA16 PO (11:13)
[2022-06-27] MEDS ORDERED: METH150T PO (11:13)
--- NOTE | 2022-06-27 11:15 | Discharge Inst-Skilled Nursing ---
Discharge Inst-Skilled NF Reconcile Patient Problems Problems Reviewed?: Yes Patient Instructions Patient Problems: Osteoporotic fracture of Lumbar spine Lumbar spine pain Uncontrolled pain Obstipation Abdominal bloating Chronic Hypertension Chronic Hypothyroidism Hyponatremia - acute Mild epistaxis Goal: improved pain - pt to determine if she can go home or move to assisted living or in with her family Consult/Follow Up/Orders Follow Up Appt.: 1 wk [facility] Skilled NF Admit to: [facility] Certification (SNF) I certify that SNF services are required to be given on an inpatient basis because of the above named patient's need for penitentiary care on a continuing basis for the conditions(s) for which he/she was receiving inpatient hospital services prior to his/her transfer to the SNF. Long-Term Facility Order: Nursing Services, Electronic Device Repairer-Evaluate & Treat, Physical Therapy-Evaluate & Treat Oxygen Delivery Method: Room Air Discharge Diet: Regular Diet Daily Activity as Tolerated: Yes Resuscitation Status: Do Not Resuscitate New & Resume Previous Orders New & Resume Previous Orders pt to wear brace when sitting in chair or walking or participating in therapy remove sandoval in one week from admission to [facility], routine sandoval catheter care Jose Raul Ritter Jun 27, 2022 11:13 JOSE RAUL RITTER MD Jun 27, 2022 11:15
[2022-06-27 12:00] VITALS: BP 144/66
== END 2022-06-27 14:42 | DRG 543 ==
LOC: ER 13:41 → EDUNIT# 13:41 → 4TH 16:44
PROVIDERS: ADMIT Family Medicine; ATTEND Family Medicine
DX: M80.08XA Age-related osteoporosis with current pathological fracture, vertebra(e), initial encounter for fracture (principal); E87.1 Hypo-osmolality and hyponatremia; K56.7 Ileus, unspecified; Z79.899 Other long term (current) drug therapy; Z79.82 Long term (current) use of aspirin; Z20.822 Contact with and (suspected) exposure to COVID-19; Z60.2 Problems related to living alone; I10 Essential (primary) hypertension; M19.90 Unspecified osteoarthritis, unspecified site; E03.9 Hypothyroidism, unspecified; K59.00 Constipation, unspecified; R04.0 Epistaxis
CPT/HCPCS: 36415; 51702; 71045; 72148; 74019; 80048; 80053; 81000; 83735; 83880; 84439; 84443; 85025; 85027; 86141; 87636

== ENCOUNTER → 2022-09-10 | Outpatient (CLI) | payer MEDICARE ==
[~2022-09-10] MED LIST changes: +AMLO2.5T4 PO; +CHOL-34 PO; +FENT1PAT8 TD; +GABA-486 PO; +LEVO25TA2 PO; +LOSA25TA41 PO; +MELA1TAB72 PO; +METH150T PO; +SIME80TA16 PO
--- NOTE | 2022-09-10 17:11 | Diagnostic Imaging Report ---
CLINICAL INDICATIONS: Patient with healing fracture of the lumbar spine. EXAM: X-ray of the thoracic spine, 3 views. COMPARISON: Chest x-ray dated 01/16/2016. MRI of the lumbar spine dated 06/23/2021. FINDINGS: Again seen a compression fracture deformity of unknown age involving L1 vertebra which is seen on the comparison MRI of the lumbar spine. This fracture is new compared to the prior thoracic spine x-ray. Stable chronic anterior wedge compression fracture deformity involving the T8 vertebra. There is kyphosis of the thoracic spine posture. There are degenerative spurs throughout the thoracic spine. There is left curvature of the thoracolumbar region. There is cardiomegaly with no significant pulmonary vascular congestion. IMPRESSION: 1: Again seen burst fracture involving the L1 vertebra better seen on comparison MRI of the lumbar spine. 2: Stable chronic compression fracture deformity involving the T8 vertebra. 3: There is degenerative disease involving the thoracic spine. Dictated by: Dictated on workstation # [id number]
--- NOTE | 2022-09-10 20:21 | Diagnostic Imaging Report ---
EXAMINATION: Lumbar spine radiographs, 3 views. COMPARISON: Lumbar spine radiographs October 07, 2017. MRI lumbar spine June 23, 2022. HISTORY: 81-year-old female, low back pain. FINDINGS: There is an L1 compression deformity with approximately 50% height loss and mild retropulsion. This is unchanged since the prior MRI on June 23, 2022. There is no identified new compression deformity. There is severe disc height loss at L4-L5 and L5-S1. There is mild grade 1 anterolisthesis of L3 on L4. There are mild disc degenerative changes of the lower thoracic spine. The sacral iliac joints are grossly unremarkable. There is limited evaluation of the sacrum given overlying bowel gas. There are anchors in the pubic bones on both sides of the pubic symphysis. IMPRESSION: 1. L1 compression deformities unchanged in appearance since June 23, 2022. 2. No new compression deformity or fracture. 3. Severe disc height loss at L4-L5 and L5-S1 and mild disc degenerative changes of the lower thoracic spine. Dictated by: Dictated on workstation # [id number]
== END ==
LOC: RAD 14:16
PROVIDERS: ATTEND Family Medicine
DX: S32.000G Wedge compression fracture of unspecified lumbar vertebra, subsequent encounter for fracture with delayed healing (principal); M47.814 Spondylosis without myelopathy or radiculopathy, thoracic region; M43.9 Deforming dorsopathy, unspecified
CPT/HCPCS: 72072; 72100